=== PATIENT | male | born 1970 | race African-American/Black ===

== ENCOUNTER 2020-03-27 14:05 | Emergency (ER) | payer OTHER, SELFPAY ==
[2020-03-27 15:11] VITALS: BP 146/77; PULSE 106; RESP 16; TEMP 36.9; BMI 19.6
[2020-03-27 17:33] VITALS: BP 140/102; PULSE 94; RESP 17; TEMP 36.9; O2SAT 97
--- NOTE | 2020-03-27 17:54 | ED_ITS ---
HPI - General Adult General Chief complaint: General Medical Stated complaint: weight loss,urinary frequency Time Seen by Provider: 03/27/20 17:54 Source: patient Mode of arrival: ambulatory Limitations: no limitations History of Present Illness HPI narrative: 49-year-old male who denies significant past medical history states that his strong family history of diabetes from both sides of family both his father and mother who presents today with complaint of increased thirst and increased urination over the past 1 week or so today he checked his weight he has lost about 10 lb that made him concerned and came to emergency room. Upon arrival in the triage area his sugar was 500 otherwise he offers no other com plaints. No abdominal pain, nausea vomiting or diarrhea. Related Data Home Medications Medication Instructions Recorded Confirmed multivitamin 1 tab PO DAILY 01/05/20 03/28/20 Previous Rx's Medication Instructions Recorded bisacodyl 5 mg tablet,delayed 10 mg PO ONCE 1 Days #2 tab 03/20/20 release polyethylene glycol 3350 17 238 g PO ONCE 1 Days #238 g 03/20/20 gram/dose oral powder metformin 500 mg tablet 500 mg PO BID #60 tab 03/28/20 Allergies Allergy/AdvReac Type Severity Reaction Status Date / Time Penicillins [PENICILLINS] Allergy Severe ANAPHYLAXIS Verified 03/28/20 14:17 Review of Systems Review of Systems: Constitutional: No Weight loss, No Fever, No Chills, No Night Sweats, No Fatigue, No Malaise ENT/Mouth: No Hearing loss, No Ear Pain, No Nasal Congestion, No Sinus Pain, No Hoarseness, No sore throat, No Rhinorrhea, No Swallowing Difficulty Eyes: No Eye Pain, No Swelling, No Redness, No Foreign Body, No Discharge, No Vision Changes Cardiovascular: No Chest Pain, No SOB, No Dyspnea on Exertion, No Orthopnea, No Edema, No Palpitations Respiratory: No Cough, No Sputum, No Wheezing, No Smoke Exposure, No Dyspnea Gastrointestinal: No Nausea, No Vomiting, No Diarrhea, No Constipation, No abdominal Pain, No Hematochezia, No Melena Genitourinary: no irregular bleeding, No Dysuria, No Urinary Frequency, No Hematuria, No Urinary Incontinence, No Urgency, No Flank Pain, Musculoskeletal: No joint pain, No Myalgias, No Joint Swelling Skin: No Skin Lesions, No rash Neuro: No Weakness, No Numbness, No Paresthesias, No Loss of Consciousness, No Dizziness, No Headache Psych: No Social Issues Heme/Lymph: No Bruising, No Bleeding,No Lymphadenopathy Endocrine: No Polyuria, No Polydipsia, No Temperature Intolerance Yes all other systems are reviewed and are negative [facility] Past Medical History Medical History (Updated 03/28/20 @ 14:58 by Rusty Cronin MD) Willis palsy Diabetes mellitus Surgical History (Updated 03/28/20 @ 14:20 by NELSON Saavedra) No pertinent past surgical history Family History Family History (Updated 03/28/20 @ 14:20 by NELSON Saavedra) Father No problems noted. Mother No problems noted. Social History Social History Alcohol intake: never Smoking Status: Current every day smoker Packs Per Day: 0.5 Cigarettes Per Day: 10.0 Years Smoked: 10 Physical Exam Vital Signs: Vital Signs: Last Vital Signs Temp 98.3 F 03/27/20 18:27 Pulse 75 03/27/20 18:27 Resp 17 03/27/20 18:27 BP 137/83 03/27/20 18:27 Pulse Ox 98 03/27/20 18:27 Body Mass Index 19.6 Reviewed Const: General: cooperative and healthy appearing; No acute distress or intoxicated appearing Nutritional Appearance: average body habitus Orientation/consciousness: patient oriented x3 HENMT: Head: Yes normal to inspection Ears: hearing grossly normal bilaterally Eyes: General: appearance normal, both eyes and all related structures Visual Villasenor: normal visual villasenor by confrontation Neck: Neck: Yes normal visual inspection and No tender Thyroid: Thyroid normal Chest: Chest palpation & inspection: normal inspection of the chest Resp: Effort & Inspection: normal respiratory effort Auscultation: clear to auscultation bilaterally Cardio: Jugular venous distension: no JVD Rate: regular rate Rhythm: regular rhythm Heart sounds: S1 normal heart sound present and S2 normal heart sound present GI: Inspection: Yes normal to inspection Percussion: Yes normal to percussion Auscultation: normal bowel sounds : General: Yes no CVA tenderness Back/Spine/Pelvis: Back: no CVA tenderness Skin: General skin exam: no rashes or lesions noted Neuro: General: patient oriented x3 Extrem: General: Yes normal to inspection Medical Decision Making MDM Narrative Medical decision making narrative: POC on arrival 590 for serum POC 463 and labs show slightly elevated renal function; baseline BUN 12, baseline creatinine 1.03 today BUN 22/creatinine 1.5 for otherwise no evidence of acidosis, acetone negative. Patient subsequently administered 2 L of fluid clinically dry. Renal function improved. Glucose dropped to 279 over course of several hours. At this point case discussed with attending agreeable with starting him on metformin 500 b.i.d. and close follow-up with [place] [facility] [place]. Findings/plan reviewed with patient. Agreeable. Lab Data Result diagrams: 03/27/20 18:14 03/27/20 20:38 Labs: Lab Results 03/27/20 03/27/20 03/27/20 Range/Units 15:16 18:14 18:14 WBC 14.0 H (4.8-10.8) X10*3/uL RBC 5.12 (4.60-5.80) X10*6/uL Hgb 15.3 (14.0-18.0) g/dl Hct 41.4 L (42-52) % MCV 80.9 (80-98) fL MCH 29.9 (27.0-33.0) pg MCHC 37.0 H (31.0-36.0) g/dl RDW 13.2 (11.0-16.0) % Plt Count 305 (160-400) X10*3/uL MPV 12.1 (9.4-12.4) fL Immature Gran % (Auto) 0.4 (0.0-0.4) % Neut % (Auto) 59.9 (45-73) % Lymph % (Auto) 31.9 (20-40) % [place] % (Auto) 6.6 (2-11) % Eos % (Auto) 0.8 (0-4) % Baso % (Auto) 0.4 (0-2) % Lymph # (Auto) 4.5 (1.2-4.9) X10*3/uL [place] # (Auto) 0.9 (0.1-1.2) X10*3/uL Eos # (Auto) 0.1 (0.0-0.4) X10*3/uL Baso # (Auto) 0.1 (0.0-0.2) X10*3/uL Abs Immat Gran (auto) 0.06 H (0.00-0.03) X10*3/uL Absolute Neuts (auto) 8.4 H (2.0-8.3) X10*3/uL Absolute Nucleated RBC 0.000 (0.0-0.012) X10*3/uL Nucleated RBC % (auto) 0.0 (0.0-0.2) /100WBC Sodium 135 (135-145) mmol/L Potassium 4.7 (3.3-5.1) mmol/l Chloride 97 (96-108) mmol/L Carbon Dioxide 25 (22-29) mmol/L Anion Gap 18 (12-20) BUN 22 H (9-16) mg/dL Creatinine 1.54 H (0.5-1.4) mg/dL Estim Creat Clear Calc 52.7 Estimated GFR 48 POC Glucose 594 H* (60-115) mg/dL Random Glucose 463 H* (60-115) mg/dL Calcium 9.6 (8.4-10.2) mg/dL Total Bilirubin 0.5 (0.0-1.0) mg/dL AST 20 (5-37) U/L ALT 21 (0-40) U/L Alkaline Phosphatase 110 (39-117) U/L Total Protein 7.7 (6.5-8.0) g/dL Albumin 4.8 (3.5-5.0) g/dL TSH 0.80 (0.32-4.0) uIU/mL Urine Color Urine Appearance Urine pH (5.0-8.0) Ur Specific [place] (1.005-1.025) Urine Protein (NEG-TRACE) MG/DL Urine Glucose (UA) (NEG) MG/DL Urine Ketones (NEG) MG/DL Urine Blood (NEG) Urine Nitrite (NEG) Ur Leukocyte Esterase (NEG) Urine RBC (0) /HPF Urine WBC (0-4) /HPF Ur Squamous Epith Cells /LPF Urine Bacteria /LPF Acetone, Qual Negative (Negative) 03/27/20 03/27/20 03/27/20 Range/Units 18:14 20:38 20:43 WBC (4.8-10.8) X10*3/uL RBC (4.60-5.80) X10*6/uL Hgb (14.0-18.0) g/dl Hct (42-52) % MCV (80-98) fL MCH (27.0-33.0) pg MCHC (31.0-36.0) g/dl RDW (11.0-16.0) % Plt Count (160-400) X10*3/uL MPV (9.4-12.4) fL Immature Gran % (Auto) (0.0-0.4) % Neut % (Auto) (45-73) % Lymph % (Auto) (20-40) % [place] % (Auto) (2-11) % Eos % (Auto) (0-4) % Baso % (Auto) (0-2) % Lymph # (Auto) (1.2-4.9) X10*3/uL [place] # (Auto) (0.1-1.2) X10*3/uL Eos # (Auto) (0.0-0.4) X10*3/uL Baso # (Auto) (0.0-0.2) X10*3/uL Abs Immat Gran (auto) (0.00-0.03) X10*3/uL Absolute Neuts (auto) (2.0-8.3) X10*3/uL Absolute Nucleated RBC (0.0-0.012) X10*3/uL Nucleated RBC % (auto) (0.0-0.2) /100WBC Sodium 140 (135-145) mmol/L Potassium 4.7 (3.3-5.1) mmol/l Chloride 105 (96-108) mmol/L Carbon Dioxide 28 (22-29) mmol/L Anion Gap 12 (12-20) BUN 19 H (9-16) mg/dL Creatinine 1.19 (0.5-1.4) mg/dL Estim Creat Clear Calc 68.3 Estimated GFR > 60 POC Glucose 279 H (60-115) mg/dL Random Glucose 309 H (60-115) mg/dL Calcium 8.4 D (8.4-10.2) mg/dL Total Bilirubin (0.0-1.0) mg/dL AST (5-37) U/L ALT (0-40) U/L Alkaline Phosphatase (39-117) U/L Total Protein (6.5-8.0) g/dL Albumin (3.5-5.0) g/dL TSH (0.32-4.0) uIU/mL Urine Color YELLOW Urine Appearance CLEAR Urine pH 5.0 (5.0-8.0) Ur Specific [place] 1.020 (1.005-1.025) Urine Protein NEG (NEG-TRACE) MG/DL Urine Glucose (UA) >=1000 H (NEG) MG/DL Urine Ketones 15 (NEG) MG/DL Urine Blood NEG (NEG) Urine Nitrite NEG (NEG) Ur Leukocyte Esterase NEG (NEG) Urine RBC 0 (0) /HPF Urine WBC 0 (0-4) /HPF Ur Squamous Epith Cells TRACE /LPF Urine Bacteria NONE /LPF Acetone, Qual (Negative) Discharge Plan Discharge Clinical Impression: Diabetes mellitus, new onset Patient Disposition: Home, Self-Care Instructions: Type 2 Diabetes in Adults: New Diagnosis (ED), Diabetes and Nutrition (ED) Additional Instructions: Taking medication prescribed Follow up with her primary care doctor tomorrow to call for appointment for follow-up in next 1-2 days Return if any concerns worsening symptoms Thank you Prescriptions: No Action polyethylene glycol 3350 [Miralax] 17 gram/dose powder 238 g PO ONCE 1 Days Qty: 238 RF: 0 bisacodyl [Dulcolax (bisacodyl)] 5 mg tablet,delayed release (DR/EC) 10 mg PO ONCE 1 Days Qty: 2 RF: 0 multivitamin Tablet 1 tab PO DAILY RF: 0 metformin 500 mg tablet 500 mg PO BID Qty: 60 RF: 8 Referrals: Rusty Cronin MD [Primary Care Provider] - 1 day Interventions: ED Discharge Assessment Last Done: 03/27/20 21:37 Discharge Date/Time: 03/27/20 21:43
[2020-03-27 18:20] LABS: MANUAL DIFF FLAG NO
[2020-03-27] MEDS: 0.9 % Sodium Chloride 1,000 ML 999 ML IV ×2 (18:20→19:44)
[2020-03-27 18:22] LABS: Basophils Absolute Auto 0.1 X10*3/uL (0.0-0.2); Basophils Percent Auto 0.4 % (0-2); Eosinophils Absolute Auto 0.1 X10*3/uL (0.0-0.4); Eosinophils Percent Auto 0.8 % (0-4); Hematocrit 41.4 % (42-52); Hemoglobin 15.3 g/dl (14.0-18.0); Imm Gran Abs Auto 0.06 X10*3/uL (0.00-0.03); Imm Gran Pct Auto 0.4 % (0.0-0.4); Lymphocytes Absolute Auto 4.5 X10*3/uL (1.2-4.9); Lymphocytes Percent Auto 31.9 % (20-40); Mean Corpuscular Hemoglobin 29.9 pg (27.0-33.0); Mean Corpuscular Volume 80.9 fL (80-98); Mean Platelet Volume 12.1 fL (9.4-12.4); Monocytes Absolute Auto 0.9 X10*3/uL (0.1-1.2); Monocytes Percent Auto 6.6 % (2-11); Neutrophils Absolute Auto 8.4 X10*3/uL (2.0-8.3); Neutrophils Percent Auto 59.9 % (45-73); Platelet Count 305 X10*3/uL (160-400); Red Blood Count 5.12 X10*6/uL (4.60-5.80); Red Cell Distribution Width 13.2 % (11.0-16.0)
[2020-03-27 18:27] VITALS: BP 137/83; PULSE 75; RESP 17; TEMP 36.8; O2SAT 98
[2020-03-27 18:32] LABS: Appearance Urine CLEAR; Color Urine YELLOW; Glucose Urine UA >=1000 MG/DL (NEG); Leukocyte Esterase Urine NEG (NEG); Nitrite Urine NEG (NEG); Urine Blood NEG (NEG); Urine Ketones 15 MG/DL (NEG); Urine Protein NEG (NEG-TRACE)
[2020-03-27 18:39] LABS: Acetone, serum QL Negative (Negative)
[2020-03-27 18:55] LABS: Alanine Aminotransferase 21 U/L (0-40); Albumin Level 4.8 g/dL (3.5-5.0); Alkaline Phosphatase 110 U/L (39-117); Anion Gap 18 (12-20); Aspartate Amino Transferase 20 U/L (5-37); Bilirubin Total 0.5 mg/dL (0.0-1.0); Blood Urea Nitrogen 22 mg/dL (9-16); Calcium 9.6 mg/dL (8.4-10.2); Carbon Dioxide 25 mmol/L (22-29); Chloride 97 mmol/L (96-108); Creatinine Clr Calc Pharmacy 52.7; Estimated Glomerular Filt Rate 48; Glucose Random 463 mg/dL (60-115); Potassium 4.7 mmol/l (3.3-5.1); Sodium 135 mmol/L (135-145); Total Protein 7.7 g/dL (6.5-8.0)
[2020-03-27 19:04] LABS: RBC Urine 0 /HPF (0); Squamous Epithelial Cell Urine TRACE /LPF; WBC Urine 0 /HPF (0-4)
[2020-03-27 20:49] LABS: Glucose, Whole Blood 279 mg/dL (60-115)
[2020-03-27 21:10] LABS: Anion Gap 12 (12-20); Blood Urea Nitrogen 19 mg/dL (9-16); Calcium 8.4 mg/dL (8.4-10.2); Carbon Dioxide 28 mmol/L (22-29); Chloride 105 mmol/L (96-108); Creatinine Clr Calc Pharmacy 68.3; Estimated Glomerular Filt Rate > 60; Glucose Random 309 mg/dL (60-115); Potassium 4.7 mmol/l (3.3-5.1); Sodium 140 mmol/L (135-145)
[2020-03-27] MEDS: metFORMIN HCl 500 MG TABLET PO (21:40)
[2020-03-28 07:50] LABS: Glucose, Whole Blood 594 mg/dL (60-115)
== END 2020-03-27 21:43 | disposition home or self-care (01) ==
PROVIDERS: Nurse Practitioner Primary Care; Emergency Provider Emergency Medicine; PCP Internal Medicine
DX: E11.9 Type 2 diabetes mellitus without complications (principal); Z71.3 Dietary counseling and surveillance
CPT/HCPCS: 36415; 80048; 80053; 81001; 82009; 82947; 84443; 85025; 96360; 96361; 99284

== ENCOUNTER → 2020-05-07 07:44 | Outpatient (BNVA) | payer OTHER, SELFPAY | PROVIDERS: PCP Internal Medicine; Visit Provider Nurse Practitioner Gerontology | DX: E11.9 Type 2 diabetes mellitus without complications (principal) | CPT/HCPCS: 82947 ==

== ENCOUNTER → 2020-05-28 14:11 | Outpatient (BNVA) | payer OTHER, SELFPAY | PROVIDERS: PCP Internal Medicine; Visit Provider Physician Assistant | DX: Z12.11 Encounter for screening for malignant neoplasm of colon (principal) | CPT/HCPCS: 99212 ==

== ENCOUNTER 2021-11-03 09:01 | Outpatient (REF) | payer OTHER, SELFPAY ==
[2021-11-03 09:35] LABS: MANUAL DIFF FLAG NO
[2021-11-03 10:18] LABS: Basophils Absolute Auto 0.1 X10*3/uL (0.0-0.2); Basophils Percent Auto 0.4 % (0-2); Eosinophils Absolute Auto 0.2 X10*3/uL (0.0-0.4); Eosinophils Percent Auto 1.9 % (0-4); Hematocrit 40.1 % (42.0-52.0); Hemoglobin 14.3 g/dl (14.0-18.0); Imm Gran Abs Auto 0.04 X10*3/uL (0.00-0.03); Imm Gran Pct Auto 0.3 % (0.0-0.4); Lymphocytes Absolute Auto 2.9 X10*3/uL (1.2-4.9); Lymphocytes Percent Auto 23.9 % (20-40); Mean Corpuscular HGB Conc 35.7 g/dl (31.0-36.0); Mean Corpuscular Hemoglobin 29.9 pg (27.0-33.0); Mean Corpuscular Volume 83.9 fL (80.0-98.0); Mean Platelet Volume 10.4 fL (9.4-12.4); Monocytes Absolute Auto 0.9 X10*3/uL (0.1-1.2); Monocytes Percent Auto 7.4 % (2-11); Neutrophils Absolute Auto 8.1 x10*3/uL (2.0-8.3); Neutrophils Percent Auto 66.1 % (45-73); Platelet Count 333 X10*3/uL (160-400); Red Blood Count 4.78 X10*6/uL (4.60-5.80); Red Cell Distribution Width 14.2 % (11.0-16.0); White Blood Count 12.2 X10*3/uL (4.8-10.8)
[2021-11-03 10:56] LABS: Alanine Aminotransferase 13 U/L (0-40); Albumin Level 4.4 g/dL (3.5-5.0); Alkaline Phosphatase 89 U/L (39-117); Anion Gap 12 (12-20); Aspartate Amino Transferase 15 U/L (5-37); Bilirubin Total 0.6 mg/dL (0.0-1.0); Blood Urea Nitrogen 17 mg/dL (9-16); Calcium 9.3 mg/dL (8.4-10.2); Carbon Dioxide 23 mmol/L (22-29); Chloride 110 mmol/L (96-108); Cholesterol 210 mg/dL; Estimated Glomerular Filt Rate > 60; Glucose Fasting 114 mg/dL (60-99); HDL Cholesterol 44 mg/dL; LDL Cholesterol Calculated 156 mg/dl; Potassium 4.2 mmol/L (3.3-5.1); Sodium 141 mmol/L (135-145); Triglycerides 51 mg/dL
[2021-11-03 11:10] LABS: Estimated Average Glucose 120 mg/dL; Hemoglobin A1c % 5.8 %
[2021-11-03 11:17] LABS: Thyroid Stimulating Hormone 0.62 uIU/mL (0.32-4.0)
== END 2021-11-03 09:02 | disposition home or self-care (01) ==
LOC: HO.LAB 09:01
PROVIDERS: PCP Internal Medicine; Visit Provider Internal Medicine
DX: Z13.0 Encounter for screening for diseases of the blood and blood-forming organs and certain disorders involving the immune mechanism (principal); E78.5 Hyperlipidemia, unspecified; E11.9 Type 2 diabetes mellitus without complications; E03.9 Hypothyroidism, unspecified; I10 Essential (primary) hypertension
CPT/HCPCS: 36415; 80053; 80061; 83036; 84443; 85025

== ENCOUNTER 2023-03-01 10:58 | Outpatient (AMB) | payer OTHER, SELFPAY ==
[2023-03-01 11:06] VITALS: BP 148/92; PULSE 95; O2SAT 98; BMI 20.1
--- NOTE | 2023-03-01 11:06 | MHC.PC.OV ---
Vital Signs 03/01/23 11:06 Height 6 ft Weight 148 lb BMI 20.1 BP 148/92 H Blood Pressure Location Lt brachial Position Sitting Pulse 95 Pulse Source Pulse Oximeter Pulse Oximetry (%) 98 Oxygen Delivery Method Room Air Intake Visit Reasons: DM Herbicide Service Sales Representative Required: No Riprap Placing Supervisor: Not Required per policy Accompanied by: Self / Same As Patient Allergies Penicillins [PENICILLINS] Allergy (Severe, Verified 03/01/23 11:06) ANAPHYLAXIS Medication List - Last Reconciled 03/01/23 by Rusty Cronin MD blood sugar diagnostic (FreeStyle Lite Strips) As directed three times a day blood-glucose meter (FreeStyle Lite Meter kit) As directed three a day lancets (FreeStyle Lancets) As directed three time a day metformin 500 mg PO BID multivitamin 1 tab PO DAILY Tobacco use date assessed: 03/01/23 Dental Screening Dental Screen Date: 03/01/23 Did you have a dental visit in the last 12 months?: No Did you have a dental problem in the last 6 months where you did not have access to dental care?: No Was dental information given to patient?: Patient has dentist HPI DM HPI Details DM on rx and needs refill; compliant; due for labs [facility] Medical History Diabetes mellitus type 2, controlled, without complications Diabetes mellitus Willis palsy Surgical History Hx of eye surgery No pertinent past surgical history Family History Father No problems noted. Mother Diabetes Hypertension Hyperlipidemia Social History Household Members: Family Housing: House Alcohol intake: current Alcohol intake frequency: does not drink Patient Tobacco Use Status: Current everyday Tobacco user Cigarette Packs Per Day: 0.5 Cigarettes Per Day: 10.0 Years Smoked: 10 e-Cigarette/Vaping Use: Never Used Second Hand Smoke Exposure: Yes service: No Current occupational status: employed Cognitive needs: No Hearing needs: No Vision needs: Yes Questionnaire PHQ-9 Over the last 2 weeks, how often have you been bothered by any of the following problems? 1. Little interest or pleasure in doing things: not at all 2. Feeling down, depressed, or hopeless: not at all 3. Trouble falling or staying asleep, or sleeping too much: not at all 4. Feeling tired or having little energy: not at all 5. Poor appetite or overeating: not at all 6. Feeling bad about yourself - or that you are a failure or have let yourself or your family down: not at all 7. Trouble concentrating on things, such as reading the newspaper or watching television: not at all 8. Moving or speaking so slowly that other people could have noticed. Or the opposite - being so fidgety or restless that you have been moving around a lot more than usual: not at all 9. Thoughts that you would be better off or of hurting yourself in some way: not at all Total score: 0 Depression Screening Interpretation: Negative Depression Screening Done: Yes Source: Developed by Drs. Trev Navarrete, Ana Ovalle, Feliz Arellano and colleagues, with an educational molly from [employer]. Thrive Questionnaire Date Thrive assessed: 03/01/23 I am a: Patient What is your living situation today?: I have a steady place to live Within the past 12 months, did the food you bought not last and you didn't have the money to get more?: Never true Within the past 12 months, did you worry whether your food would run out before you got money to buy more?: Never true Do you have trouble paying for medicines?: No Do you have trouble getting transportation to medical appointments?: No Do you have trouble paying your heating and electricity bill?: No Do you have trouble taking care of your child, family member or friend?: No Do you have trouble with day-to-day activities such as bathing, preparing meals, shopping, managing finances, etc.?: No Are you currently unemployed and looking for a job?: No Are you interested in more education?: No Please select the resources that you would like help with: None AUDIT C Alcohol Use Questionnaire (AUDIT-C) 1. How often do you have a drink containing alcohol?: Never 3. How often do you have six or more drinks on one occasion?: Never Total Score: 0 Score Reviewed/Action Taken: Yes KATYA-7 AMB Questionnaire KATYA-7 Date KATYA - 7 assessed: 03/01/23 Feeling nervous, anxious, or on edge: 0 = Not at all Not being able to stop or control worryin = Not at all Worrying too much about different things: 0 = Not at all Trouble relaxin = Not at all Being so restless that it is hard to sit still: 0 = Not at all Becoming easily annoyed or irritable: 0 = Not at all Feeling afraid as if something awful might happen: 0 = Not at all Total KATYA-7 score (0-4 normal; 5-9 mild; 10-14 moderate; 15-21 severe): 0 Source: Developed by Drs. Trev Navarrete, Ana Ovalle, Feliz Arellano and colleagues, with an educational molly from [employer]. Review of Systems Const Denies chills, Denies headache(s) and Denies weight loss ENT Denies headache(s) Card Denies chest pain, Denies syncope, Denies irregular heart rhythm and Denies dyspnea Resp Denies chest congestion, Denies cough and Denies dyspnea GI Denies abdominal pain, Denies change in stool character, Denies nausea and Denies vomiting Musc Denies deformity and Denies joint swelling Neuro Denies syncope and Denies headache(s) Physical exam (Primary Care) Vital Signs: Last Vital Signs Pulse 95 03/01/23 11:06 BP 148/92 H 03/01/23 11:06 Pulse Ox 98 03/01/23 11:06 Oxygen Delivery Method Room Air 03/01/23 11:06 BMI result Body Mass Index 20.1 Tobacco/Smoking Status: Tobacco use Status Tobacco use date assessed 03/01/23 03/01/23 11:07 Patient Tobacco Use Status Current everyday Tobacco 03/01/23 11:07 e-Cigarette/Vaping Use Never Used 03/01/23 11:07 PHQ-9: PHQ-9 Score PHQ-9: Total score 0 03/01/23 11:07 Depression Screening Interpretation: Negative Thrive Assessment: Date of Thrive Assessment Date Thrive assessed 03/01/23 03/01/23 11:07 Const General: cooperative, comfortable, no acute distress and alert Neck Neck: Yes no lymphadenopathy Thyroid: Thyroid normal Resp Effort & Inspection: normal respiratory effort Auscultation: clear to auscultation bilaterally Percussion: percussion normal Cardio Jugular venous distension: no JVD Palpation: normal PMI Rate: regular rate Rhythm: regular rhythm Heart sounds: S1 normal heart sound present and S2 normal heart sound present GI Inspection: Yes normal to inspection Palpation (GI): No hepatosplenomegaly present Skin General skin exam: no rashes or lesions noted Extrem General: Yes no clubbing, cyanosis or edema Assessment and Plan Assessment & Plan (1) Diabetes mellitus type 2, controlled, without complications: Code(s): E11.9 - Type 2 diabetes mellitus without complications Plan: labs Orders: Orders Lipid Panel Today E78.5 - Hyperlipidemia, unspecified Microalbumin, Random (w Creat) Today E11.69 - Type 2 diabetes mellitus with other specified complication, E66.01 - Morbid (severe) obesity due to excess calories Hemoglobin A1c Today R73.9 - Hyperglycemia, unspecified Comprehensive [place]. Panel Fast Today N28.9 - Disorder of kidney and ureter, unspecified Complete Blood Count Auto Diff Today D64.9 - Anemia, unspecified Medications: Refilled metformin 500 mg PO BID 60 tabs 8RF Coding Level of Care Code Est Pt Level 3 (05764) Diagnoses Diabetes mellitus type 2, controlled, without complications E11.9 Additional Codes PHQ-9 - 35904 - PHQ-9 Billing: ([id number])
== END 2023-03-01 11:56 | disposition home or self-care (01) ==
PROVIDERS: PCP Internal Medicine; Visit Provider Internal Medicine
DX: E11.9 Type 2 diabetes mellitus without complications (principal)
CPT/HCPCS: 99213

== ENCOUNTER 2023-03-10 08:05 | Outpatient (REF) | payer OTHER, SELFPAY ==
[2023-03-10 08:26] LABS: MANUAL DIFF FLAG NO
[2023-03-10 08:47] LABS: Basophils Absolute Auto 0.1 X10*3/uL (0.0-0.2); Basophils Percent Auto 0.5 % (0-2); Eosinophils Absolute Auto 0.2 X10*3/uL (0.0-0.4); Eosinophils Percent Auto 1.8 % (0-4); Hematocrit 40.5 % (42.0-52.0); Hemoglobin 14.8 g/dl (14.0-18.0); Imm Gran Abs Auto 0.05 X10*3/uL (0.00-0.03); Imm Gran Pct Auto 0.4 % (0.0-0.4); Lymphocytes Absolute Auto 4.1 X10*3/uL (1.2-4.9); Lymphocytes Percent Auto 31.8 % (20-40); Mean Corpuscular HGB Conc 36.5 g/dl (31.0-36.0); Mean Corpuscular Hemoglobin 30.3 pg (27.0-33.0); Mean Platelet Volume 9.9 fL (9.4-12.4); Monocytes Absolute Auto 1.2 X10*3/uL (0.1-1.2); Monocytes Percent Auto 9.7 % (2-11); Neutrophils Absolute Auto 7.1 x10*3/uL (2.0-8.3); Neutrophils Percent Auto 55.8 % (45-73); Platelet Count 368 X10*3/uL (160-400); Red Blood Count 4.88 X10*6/uL (4.60-5.80); White Blood Count 12.7 X10*3/uL (4.8-10.8)
[2023-03-10 09:21] LABS: Microalbum/Creatinine Ratio Ur 4.9 ug/mg cr (<30)
[2023-03-10 09:22] LABS: Alanine Aminotransferase 22 U/L (0-40); Albumin Level 4.4 g/dL (3.5-5.0); Alkaline Phosphatase 93 U/L (39-117); Anion Gap 12 (12-20); Aspartate Amino Transferase 23 U/L (5-37); Bilirubin Total 0.8 mg/dL (0.0-1.0); Blood Urea Nitrogen 19 mg/dL (9-16); Calcium 9.5 mg/dL (8.4-10.2); Carbon Dioxide 27 mmol/L (22-29); Chloride 106 mmol/L (96-108); Cholesterol 216 mg/dL (<200); Estimated Glomerular Filt Rate > 60; Glucose Fasting 154 mg/dL (60-99); HDL Cholesterol 42 mg/dL (>40); LDL Cholesterol Calculated 158 mg/dL (<100); Potassium 3.9 mmol/L (3.3-5.1); Sodium 141 mmol/L (135-145); Total Protein 7.3 g/dL (6.5-8.0); Triglycerides 80 mg/dL (<150)
[2023-03-10 09:31] LABS: Estimated Average Glucose 131 mg/dL; Hemoglobin A1c % 6.2 % (<6.0)
== END 2023-03-10 08:06 | disposition home or self-care (01) ==
LOC: HO.LAB 08:05
PROVIDERS: PCP Internal Medicine; Visit Provider Internal Medicine
DX: D64.9 Anemia, unspecified (principal); E78.5 Hyperlipidemia, unspecified; E66.01 Morbid (severe) obesity due to excess calories; N28.9 Disorder of kidney and ureter, unspecified; E11.65 Type 2 diabetes mellitus with hyperglycemia
CPT/HCPCS: 36415; 80053; 80061; 82043; 82570; 83036; 85025

== ENCOUNTER 2024-02-24 13:38 | Outpatient (AMB) | payer OTHER, SELFPAY ==
--- NOTE | 2024-02-24 13:39 | MHC.PC.OV ---
Vital Signs 02/24/24 13:42 Height 6 ft Weight 144 lb BMI 19.5 BP 146/94 H Blood Pressure Location Lt brachial Position Sitting Pulse 117 H Pulse Source Pulse Oximeter Pulse Oximetry (%) 95 Oxygen Delivery Method Room Air Intake Visit Reasons: OVERDUE ANNUAL PE- NEEDS A1C Education And Development Manager Required: No Accompanied by: Self / Same As Patient Allergies Penicillins [PENICILLINS] Allergy (Severe, Verified 02/24/24 13:47) ANAPHYLAXIS Medication List - Last Reconciled 02/25/24 by Rusty Cronin MD blood sugar diagnostic (FreeStyle Lite Strips) As directed three times a day blood-glucose meter (FreeStyle Lite Meter kit) As directed three a day lancets (FreeStyle Lancets) As directed three time a day metformin 500 mg PO BID multivitamin 1 tab PO DAILY Tobacco use date assessed: 02/24/24 Dental Screening Dental Screen Date: 02/24/24 Did you have a dental visit in the last 12 months?: No Did you have a dental problem in the last 6 months where you did not have access to dental care?: No Was dental information given to patient?: Yes HPI OVERDUE ANNUAL PE- NEEDS A1C HPI Details DM on rx; compliant; stable; due for labs PFSH Medical History Diabetes mellitus type 2, controlled, without complications Diabetes mellitus Willis palsy Surgical History Hx of eye surgery No pertinent past surgical history Family History Father No problems noted. Mother Diabetes Hypertension Hyperlipidemia Social History Household Members: Family Housing: House Alcohol intake: current Alcohol intake frequency: does not drink Patient Tobacco Use Status: Current everyday Tobacco user Tobacco use type: Cigarette Cigarette Packs Per Day: 0.5 Cigarettes Per Day: 10.0 Years Smoked: 10 Packs Per Year: 5 Packs per year/per ci.00 e-Cigarette/Vaping Use: Never Used Second Hand Smoke Exposure: Yes service: No Current occupational status: employed Cognitive needs: No Hearing needs: No Vision needs: Yes Questionnaire PHQ-9 Over the last 2 weeks, how often have you been bothered by any of the following problems? 1. Little interest or pleasure in doing things: not at all 2. Feeling down, depressed, or hopeless: not at all 3. Trouble falling or staying asleep, or sleeping too much: not at all 4. Feeling tired or having little energy: not at all 5. Poor appetite or overeating: not at all 6. Feeling bad about yourself - or that you are a failure or have let yourself or your family down: not at all 7. Trouble concentrating on things, such as reading the newspaper or watching television: not at all 8. Moving or speaking so slowly that other people could have noticed. Or the opposite - being so fidgety or restless that you have been moving around a lot more than usual: not at all 9. Thoughts that you would be better off or of hurting yourself in some way: not at all Total score: 0 Depression Screening Interpretation: Negative Depression Screening Done: Yes 91875 - PHQ-9 Billing: Yes Source: Developed by Drs. Trev Navarrete, Ana Ovalle, Feliz Arellano and colleagues, with an educational molly from [employer]. Thrive Questionnaire Date Thrive assessed: 02/24/24 I am a: Patient What is your living situation today?: I have a steady place to live Within the past 12 months, did the food you bought not last and you didn't have the money to get more?: Never true Within the past 12 months, did you worry whether your food would run out before you got money to buy more?: Never true Do you have trouble paying for medicines?: No Do you have trouble getting transportation to medical appointments?: No Do you have trouble paying your heating and electricity bill?: No Do you have trouble taking care of your child, family member or friend?: No Do you have trouble with day-to-day activities such as bathing, preparing meals, shopping, managing finances, etc.?: No Are you currently unemployed and looking for a job?: No Are you interested in more education?: No Please select the resources that you would like help with: None THRIVE Score: 0 AUDIT C Alcohol Use Questionnaire (AUDIT-C) 1. How often do you have a drink containing alcohol?: Never 2. How many drinks containing alcohol do you have on a typical day when you are drinking?: 1 or 2 3. How often do you have six or more drinks on one occasion?: Never Total Score: 0 KATYA-7 AMB Questionnaire KATYA-7 Date KATYA - 7 assessed: 02/24/24 Feeling nervous, anxious, or on edge: 0 = Not at all Not being able to stop or control worryin = Not at all Worrying too much about different things: 0 = Not at all Trouble relaxin = Not at all Being so restless that it is hard to sit still: 0 = Not at all Becoming easily annoyed or irritable: 0 = Not at all Feeling afraid as if something awful might happen: 0 = Not at all Total KATYA-7 score (0-4 normal; 5-9 mild; 10-14 moderate; 15-21 severe): 0 Source: Developed by Drs. Trev Navarrete, Ana Ovalle, Feliz Arellano and colleagues, with an educational molly from [employer]. KATYA-7 Assessment Billing KATYA-7 Assessment Tool: KATYA-7 Assessment 80269 Review of Systems Const Denies chills, Denies fatigue, Denies headache(s) and Denies weight loss Eyes Denies change in vision, Denies diplopia and Denies eye pain ENT Denies vertigo, Denies dizziness, Denies headache(s) and Denies nasal discharge Card Denies chest pain, Denies rapid heart rate and Denies dyspnea on exertion Resp Denies chest congestion, Denies cough, Denies pain with cough and Denies dyspnea on exertion GI Denies abdominal pain, Denies hematochezia and Denies change in bowel habits Musc Denies myalgias, Denies arthralgias and Denies joint swelling Skin/Breast Denies lesions and Denies unusual bruising Neuro Denies vertigo, Denies dizziness, Denies headache(s) and Denies focal weakness Endo Denies fatigue Physical exam (Primary Care) Vital Signs: Last Vital Signs Pulse 117 H 02/24/24 13:42 BP 146/94 H 02/24/24 13:42 Pulse Ox 95 02/24/24 13:42 Oxygen Delivery Method Room Air 02/24/24 13:42 BMI result Body Mass Index 19.5 Tobacco/Smoking Status: Tobacco use Status Tobacco use date assessed 02/24/24 02/24/24 13:50 Patient Tobacco Use Status Current everyday Tobacco 02/24/24 13:39 Tobacco use type Cigarette 02/24/24 13:50 e-Cigarette/Vaping Use Never Used 02/24/24 13:39 PHQ-9: PHQ-9 Score PHQ-9: Total score 0 02/24/24 13:51 Depression Screening Interpretation: Negative Thrive Assessment: Date of Thrive Assessment Date Thrive assessed 02/24/24 02/24/24 13:50 Const General: cooperative, healthy appearing and no acute distress Orientation/consciousness: oriented to person, oriented to place and oriented to time HENMT Head: Yes normal to inspection, Yes normocephalic and Yes atraumatic Mouth: Normal oral and palatal mucosa present and tongue normal Throat: Yes posterior oropharynx normal and Yes uvula midline Eyes General: appearance normal, both eyes and all related structures Neck Neck: Yes normal visual inspection, Yes full ROM and Yes no lymphadenopathy Thyroid: Thyroid normal Carotids: normal carotid upstroke Chest Chest palpation & inspection: normal inspection of the chest Resp Effort & Inspection: normal respiratory effort and able to speak in complete sentences Auscultation: clear to auscultation bilaterally Cardio Jugular venous distension: no JVD Palpation: normal PMI Rate: regular rate Rhythm: regular rhythm Heart sounds: S1 normal heart sound present and S2 normal heart sound present GI Inspection: Yes normal to inspection Palpation (GI): Soft to palpation and No hepatosplenomegaly present Auscultation: normal bowel sounds General: Yes no CVA tenderness Back/Spine/Pelvis Back: no CVA tenderness Skin General skin exam: no rashes or lesions noted Neuro General: oriented to person, oriented to place and oriented to time Extrem General: Yes normal to inspection and Yes full ROM Results AMB Hemoglobin A1c AMB Hemoglobin A1c 7.0 % Last Edit by Meg Beard CMA on 02/24/24 13:52 Results Reviewed Results Reviewed: Laboratory Last Values Hgb A1c (Clinic) 7.0 % (4.0-6.0) H 02/24/24 13:46 Coding Level of Care Code Est Pt Prev Care 40-64y(77709) Diagnoses Physical exam Z00.00 Diabetes mellitus type 2, controlled, without complications E11.9 Additional Codes KATYA-7 Assessment Billing - KATYA-7 Assessment Tool: KATYA-7 Assessment 09313 ([id number]) PHQ-9 - 45319 - PHQ-9 Billing: Yes ([id number]) Assessment & Plan Assessment & Plan (1) Physical exam: Code(s): Z00.00 - Encounter for general adult medical examination without abnormal findings Category: Medical Plan: stable (2) Diabetes mellitus type 2, controlled, without complications: Code(s): E11.9 - Type 2 diabetes mellitus without complications Category: Medical Plan: stable; same rx; do labs Orders: Orders Lipid Panel 02/24/24 Z13.220 - Encounter for screening for lipoid disorders AMB Hemoglobin A1c 02/24/24 E11.9 - Type 2 diabetes mellitus without complications Complete Blood Count Auto Diff 02/24/24 Z13.0 - Encounter for screening for diseases of the blood and blood-forming organs and certain disorders involving the immune mechanism Comprehensive [place]. Panel Fast 02/24/24 Z13.9 - Encounter for screening, unspecified Microalbumin, Random (w Creat) 02/24/24 E11.69 - Type 2 diabetes mellitus with other specified complication, E66.01 - Morbid (severe) obesity due to excess calories Referrals Ophthalmology Referral E11.9 - Type 2 diabetes mellitus without complications, Z01.00 - Encounter for examination of eyes and vision without abnormal findings
[2024-02-24 13:42] VITALS: BP 146/94; PULSE 117; O2SAT 95; BMI 19.5
== END 2024-02-24 15:28 | disposition home or self-care (01) ==
PROVIDERS: PCP Internal Medicine; Visit Provider Internal Medicine
DX: Z00.00 Encounter for general adult medical examination without abnormal findings (principal); E11.9 Type 2 diabetes mellitus without complications

== ENCOUNTER → 2024-02-24 13:38 | Outpatient (BNVA) | payer OTHER, SELFPAY | PROVIDERS: PCP Internal Medicine; Visit Provider Internal Medicine | DX: Z00.00 Encounter for general adult medical examination without abnormal findings (principal); E11.9 Type 2 diabetes mellitus without complications | CPT/HCPCS: 83036; 96127; 99396 ==

== ENCOUNTER 2024-08-06 16:37 | Inpatient (IN) | payer OTHER, SELFPAY ==
--- NOTE | ~2024-08-06 | MR_ITS ---
EXAMINATION: MR BRAIN WITHOUT CONTRAST CLINICAL INFORMATION: Left lower extremity weakness. COMPARISON: No prior available. Correlation made with CT angiography head and neck 08/06/2024. TECHNIQUE: MRI of the brain was obtained using routine sequences without contrast. Examination performed on a 1.5 Leonor Siemens high-field magnet. FINDINGS: Area of acute infarction/diffusion restriction right mid to posterior hull radiata measuring 2.0 x 1.1 x 1.8 cm (AP, TRV, CC). This begins in the posterior right putamen and extends cephalad to the posterior internal capsule/mid to posterior hull radiata. There is no associated gross mass effect associated with this infarct. There is no intracranial hemorrhage, additional acute infarction, mass effect, or edema. Ventricles, sulci, and cisterns are normal in size and configuration for patient age. No shift of midline. No abnormal hemosiderin deposition is identified. There is an old lacunar type infarct in the anterior left hull radiata. There is an old lacunar type infarct right medial cerebellum. There are scattered punctate and minimally confluent foci of white matter T2 hyperintensity in the periventricular, subcortical, and hemispheric deep white matter, nonspecific. These statistically most likely relate to small vessel ischemic changes. Midline structures appear normally formed. The pituitary gland appears normal. Posterior fossa structures appear normal. Cerebellar tonsils are appropriately located. Major flow voids are preserved within the skull base. The globes and orbital contents demonstrate no abnormalities. Paranasal sinuses are clear bilaterally. The mastoids and tympanic cavities are normally aerated. Extracranial soft tissues demonstrate no abnormalities. No suspicious bone marrow changes are evident. Atlantoaxial joint is normal. MR/MR head/brain wo con IMPRESSION: 1. Acute/subacute infarct in the right mid to posterior hull radiata measuring 2.0 x 1.1 x 1.8 cm (MCA perforators/lenticulostriate artery distribution). No associated mass effect. 2. No additional acute infarct, evidence of intracranial hemorrhage, mass effect, or edema. 3. Old infarct in the left anterior hull radiata. Old lacunar type infarct in the right medial cerebellum. Consider chronic hypertension. 4. Mild to moderate changes of small vessel ischemia. Electronically signed by: Harris tMz MD 08/07/2024 01:01 PM EDT
--- NOTE | ~2024-08-06 | CT_ITS ---
CLINICAL HISTORY: Left arm and leg weakness x3 days CT angiography head and neck with contrast. 3D Postprocessing. Comparison: None Findings: Aortic arch and cervical great vessels are patent. Minimal calcified plaque at right carotid bifurcation. No stenosis. Bilateral internal and external carotid arteries are patent. Bilateral vertebral arteries are patent. Intracranial arteries are patent. No intracranial large vessel occlusion. No aneurysm. Overall symmetric branching pattern. No abnormal intracranial enhancement. The visualized thyroid gland is unremarkable. No cervical mass or fluid collection. Lung apices clear. No acute fracture. IMPRESSION: Patent head and neck CTA. This document has been electronically signed by: Karen Nicole MD on 08/06/2024 20:25:07
--- NOTE | ~2024-08-06 | XR_ITS ---
CLINICAL HISTORY: Left arm and leg weakness x3 days 2 view chest x-ray Comparison: None Findings: Normal size heart. No consolidation, pleural effusion or pneumothorax. No acute fracture. IMPRESSION: 1. No acute findings. This document has been electronically signed by: Karen Nicole MD on 08/06/2024 18:09:45
[2024-08-06 16:41] VITALS: BP 209/120; PULSE 114; RESP 17; TEMP 36.6; O2SAT 98; BMI 19.2
--- NOTE | 2024-08-06 16:46 | ECG_ITS ---
Test Reason : HTN Blood Pressure : */* mmHG Vent. Rate : 95 BPM Atrial Rate : 95 BPM P-R Int : 156 ms QRS Dur : 78 ms QT Int : 342 ms P-R-T Axes : 63 73 180 degrees QTcB Int : 429 ms Normal sinus rhythm Minimal voltage criteria for LVH, may be normal variant ( Sokolow-Ball ) T wave abnormality, consider anterolateral ischemia Abnormal ECG No previous ECGs available Referred By: Agustin Qureshi Electronically Signed By: Camilo Shipley
--- NOTE | 2024-08-06 16:48 | ED.GENADULT ---
HPI - General Adult General Chief complaint: General Medical Stated complaint: Left Leg pain Time Seen by Provider: 08/06/24 17:17 History of Present Illness ED Provider: Dr. Little HPI narrative: 54 y/o M patient; PMH T2DM; presents from home reporting 3 days (starting Wednesday08/04/2024) left arm and leg weakness. He states on Wednesday he was at work when around 11am he noticed his left leg felt heavy. He noticed he was limping and almost having to drag his left leg with him. He also noticed some decreased dexterity in his left arm during this time. He continued working. The patient otherwise denies: fever or chills, chest pain, SOB, cough/congestion, abdominal pain, nausea/vomiting, visual abnormalities. He denies any leg or back pain. Related Data Home Medications ?Medication ?Instructions ?Recorded ?Confirmed multivitamin 1 tab PO DAILY 01/05/20 08/06/24 Previous Rx's ?Medication ?Instructions ?Recorded blood sugar diagnostic (FreeStyle #100 ea 05/07/20 Lite Strips) blood-glucose meter (FreeStyle #1 ea 05/07/20 Lite Meter kit) lancets 28 gauge (FreeStyle #100 ea 05/07/20 Lancets) metformin 500 mg tablet 500 mg PO BID #60 tabs 10/13/23 Allergies Allergy/AdvReac Type Severity Reaction Status Date / Time Penicillins [PENICILLINS] Allergy Severe ANAPHYLAXIS Verified 08/06/24 16:43 Review of Systems Review of Systems: Yes all other systems are reviewed and are negative Neurologic: Denies Sensory deficit (Neuro) [facility] Past Medical History Attestation statement: The following information was validated with the patient. Source: old records reviewed Medical History Diabetes mellitus type 2, controlled, without complications Diabetes mellitus Willis palsy Surgical History Hx of eye surgery No pertinent past surgical history Family History Family History Father No problems noted. Mother Diabetes Hypertension Hyperlipidemia Social History Social History Household Members: Family Housing: Apartment Do you presently have visiting nurse or other home services: No Alcohol intake: current Alcohol intake frequency: does not drink Patient Tobacco Use Status: Current everyday Tobacco user Tobacco use type: Cigarette Cigarette Packs Per Day: 0.5 Cigarettes Per Day: 10 Years Smoked: 10 e-Cigarette/Vaping Use: Never Used Second Hand Smoke Exposure: Yes service: No Current occupational status: employed Cognitive needs: No Hearing needs: No Vision needs: Yes Physical Exam ED Vital Signs: Vital Signs - 24 hr 08/06/24 16:41 08/06/24 18:00 08/06/24 20:00 Temperature 98 F 98.2 F Pulse Rate 114 H 93 Respiratory Rate 17 16 Blood Pressure 209/120 H 192/95 H 187/115 H Pulse Oximetry 98 97 Oxygen Delivery Method Room Air Room Air 08/06/24 21:08 Temperature 98.6 F Pulse Rate 72 Respiratory Rate 16 Blood Pressure 185/102 H Pulse Oximetry 97 Oxygen Delivery Method Room Air BMI result Body Mass Index 19.2 Patient is afebrile, tachycardic, and hypertensive. Const General: cooperative Orientation/consciousness: patient oriented x3 HENMT Head: Yes normal to inspection and Yes atraumatic Eyes General: appearance normal, both eyes and all related structures Pupils: Equal, round and reactive pupils present EOM: EOMs intact bilaterally Neck Neck: Yes normal visual inspection, Yes full ROM, Yes supple and No tender Chest Chest palpation & inspection: normal inspection of the chest and normal palpation of entire chest wall Resp Effort & Inspection: normal respiratory effort, able to speak in complete sentences, no cough and no respiratory distress Auscultation: clear to auscultation bilaterally Cardio Rate: tachycardic Rhythm: regular rhythm Peripheral pulses: Peripheral pulses 2+ throughout GI Inspection: Yes normal to inspection, No Abdominal wall edema and No distended Palpation (GI): Soft to palpation, not firm, nontender, no guarding and not rigid Auscultation: normal bowel sounds Back/Spine/Pelvis Back: No back tenderness Neuro General: patient oriented x3 Cranial nerves: Yes Equal, round and reactive pupils present Gait exam (Neuro): Other gait observations present (Limping with left lower extremity ) Motor exam (neuro): 5/5 motor strength present throughout Sensory Exam: No Sensory deficit (Neuro) Coordination: [id number] test normal, Normal rapid alternating movements of the distal upper extremity present (Neuro) and Normal rapid alternating movements of the distal lower extremity present (Neuro) Course Course Course Narrative: RME: 54-year-old male presents to ED for left arm left leg weakness since Wednesday. Patient states feeling off. Patient denies any slurred speech patient has droop or paralysis. Patient is found to be hypertensive systolic 209 at triage. Negative for facial droop, slurred speech, loss of vision, paralysis of extremities. Upper extremities 5+ strength. Left leg 4+ strength right lower extremity 5+ strength. Patient to be brought into the ED for elevated blood pressure. Patient has all the window for stroke protocol. Reevaluation(s) Reevaluation #1: Patient is afebrile, tachycardic, and hypertensive. I initially came to the attention of this patient after reviewing his quite abnormal EKG. He does not have a prior available in our system for review. EKG independently interpreted by myself: NSR 95BPM with T wave inversions in V4 - V6, ST elevations in V2 - V3. I can see a prior exercise stress test from 03/31/2019 which was positive and suggestive of ischemia. He did not ever follow up after this test. NIHSS 0. Patient is well outside of the window for tnk. Will proceed with CTA Head/Neck. Provided ASA 81mg PO. Labs reviewed. Negative troponin. I did discuss the case with cardiology Dr. Cartagena who was provided a copy of the EKG for evaluation. Agreed with plan for admission. CTA Head/Neck unremarkable. Plan: Admit to hospitalist Condition: Stable Medications Administered Generic Name Dose Route Start Last Admin Trade Name Ferminq PRN Reason Stop Dose Admin Amlodipine Besylate 10 mg 08/07/24 10:15 08/07/24 11:50 Amlodipine Besylate 10 Mg Tablet PO 10 mg DAILY PARK Administration Protocol Aspirin 81 mg 08/07/24 09:00 08/07/24 09:18 Aspirin Enteric Coated 81 Mg Tablet. PO 81 mg DAILY PARK Administration Atorvastatin Calcium 80 mg 08/07/24 09:00 08/07/24 09:18 Atorvastatin Calcium 80 Mg Tablet PO 80 mg DAILY PARK Administration Heparin Sodium (Porcine) 5,000 unit 08/06/24 22:00 08/07/24 14:27 Heparin Sodium,Porcine 5,000 Unit/Ml Vial SUBCUT 5,000 unit Q8H PARK Administration Insulin Human Lispro 0 unit 08/07/24 07:30 08/07/24 11:52 Insulin Lispro 100 Unit/Ml 3 Ml Vial SUBCUT Not Given QIDACHS [facility] Protocol Losartan Potassium 50 mg 08/07/24 10:15 08/07/24 11:51 Losartan Potassium 50 Mg Tablet PO 50 mg DAILY [facility] Administration Protocol Sodium Chloride 3 ml 08/07/24 00:00 08/07/24 07:24 0.9 % Sodium Chloride Flush 3 Ml Syringe IVFLUSH 3 ml QSHIFT [facility] Administration Discontinued Medications Generic Name Dose Route Start Last Admin Trade Name Sheng PRN Reason Stop Dose Admin Aspirin 81 mg 08/06/24 18:19 08/06/24 18:25 Aspirin 81 Mg Tab.Chew PO 08/06/24 18:20 81 mg ONCE ONE Administration Iohexol 100 ml 08/06/24 18:10 08/06/24 18:10 Iohexol 350 Mg/Ml 100 Ml Infus..Btl IV 08/06/24 18:11 70 ml ONCE ONE Administration Medical Decision Making Lab Data 08/07/24 05:30 08/07/24 05:30 Labs: Lab Results 08/06/24 Range/Units 17:10 WBC 10.8 (4.8-10.8) X10*3/uL RBC 4.65 (4.60-5.80) X10*6/uL Hgb 13.8 L (14.0-18.0) g/dl Hct 37.7 L (42.0-52.0) % MCV 81.1 (80.0-98.0) fL MCH 29.7 (27.0-33.0) pg MCHC 36.6 H (31.0-36.0) g/dl RDW 14.3 (11.0-16.0) % Plt Count 346 (160-400) X10*3/uL MPV 9.8 (9.4-12.4) fL Immature Gran % (Auto) 0.4 (0.0-0.4) % Neut % (Auto) 63.6 (45-73) % Lymph % (Auto) 27.8 (20-40) % Mclennan % (Auto) 7.1 (2-11) % Eos % (Auto) 0.7 (0-4) % Baso % (Auto) 0.4 (0-2) % Lymph # (Auto) 3.0 (1.2-4.9) X10*3/uL Mclennan # (Auto) 0.8 (0.1-1.2) X10*3/uL Eos # (Auto) 0.1 (0.0-0.4) X10*3/uL Baso # (Auto) 0.0 (0.0-0.2) X10*3/uL Abs Immat Gran (auto) 0.04 H (0.00-0.03) X10*3/uL Absolute Neuts (auto) 6.9 (2.0-8.3) x10*3/uL Absolute Nucleated RBC 0.000 (0.0-0.012) X10*3/uL Nucleated RBC % (auto) 0.0 (0.0-0.2) /100WBC PT 11.4 (10.9-12.4) SEC INR 1.0 (0.9-1.1) APTT 32.5 (26.0-36.8) SEC Sodium 141 (135-145) mmol/L Potassium 4.1 (3.3-5.1) mmol/L Chloride 107 (96-108) mmol/L Carbon Dioxide 24 (22-29) mmol/L Anion Gap 14 (12-20) BUN 12 (9-16) mg/dL Creatinine 0.87 (0.5-1.4) mg/dL Estim Creat Clear Calc 88.5 Estimated GFR > 60 Random Glucose 224 H (60-115) mg/dL Calcium 9.3 (8.4-10.2) mg/dL Total Bilirubin 0.5 (0.0-1.0) mg/dL AST 27 (5-37) U/L ALT 20 (0-40) U/L Alkaline Phosphatase 93 (39-117) U/L Troponin I High Sens < 2.7 (<3.5-35.0) ng/L Total Protein 6.9 (6.5-8.0) g/dL Albumin 4.2 (3.5-5.0) g/dL Radiology Impression Discussion of test interpretation with radiology: I have reviewed the radiologist's reading. Radiologist Impression: CLINICAL HISTORY: Left arm and leg weakness x3 days 2 view chest x-ray Comparison: None Findings: Normal size heart. No consolidation, pleural effusion or pneumothorax. No acute fracture. IMPRESSION: 1. No acute findings. This document has been electronically signed by: Karen Nicole MD on 08/06/2024 18:09:45 CLINICAL HISTORY: Left arm and leg weakness x3 days CT angiography head and neck with contrast. 3D Postprocessing. Comparison: None Findings: Aortic arch and cervical great vessels are patent. Minimal calcified plaque at right carotid bifurcation. No stenosis. Bilateral internal and external carotid arteries are patent. Bilateral vertebral arteries are patent. Intracranial arteries are patent. No intracranial large vessel occlusion. No aneurysm. Overall symmetric branching pattern. No abnormal intracranial enhancement. The visualized thyroid gland is unremarkable. No cervical mass or fluid collection. Lung apices clear. No acute fracture. IMPRESSION: Patent head and neck CTA. This document has been electronically signed by: Karen Nicole MD on 08/06/2024 20:25:07 Discharge Plan Discharge Clinical Impression: Left arm weakness, Left leg weakness, Hypertension Patient Disposition: Admitted As Inpatient Interventions: Admission Worksheet (ED) Last Done: 08/07/24 08:17 Discharge Date/Time: 08/07/24 09:26
[2024-08-06 17:15] LABS: MANUAL DIFF FLAG NO
[2024-08-06 17:18] LABS: Basophils Percent Auto 0.4 % (0-2); Eosinophils Absolute Auto 0.1 X10*3/uL (0.0-0.4); Eosinophils Percent Auto 0.7 % (0-4); Hematocrit 37.7 % (42.0-52.0); Hemoglobin 13.8 g/dl (14.0-18.0); Imm Gran Abs Auto 0.04 X10*3/uL (0.00-0.03); Imm Gran Pct Auto 0.4 % (0.0-0.4); Lymphocytes Percent Auto 27.8 % (20-40); Mean Corpuscular HGB Conc 36.6 g/dl (31.0-36.0); Mean Corpuscular Hemoglobin 29.7 pg (27.0-33.0); Mean Corpuscular Volume 81.1 fL (80.0-98.0); Mean Platelet Volume 9.8 fL (9.4-12.4); Monocytes Absolute Auto 0.8 X10*3/uL (0.1-1.2); Monocytes Percent Auto 7.1 % (2-11); Neutrophils Absolute Auto 6.9 x10*3/uL (2.0-8.3); Neutrophils Percent Auto 63.6 % (45-73); Platelet Count 346 X10*3/uL (160-400); Red Blood Count 4.65 X10*6/uL (4.60-5.80); Red Cell Distribution Width 14.3 % (11.0-16.0); White Blood Count 10.8 X10*3/uL (4.8-10.8)
[2024-08-06 17:26] LABS: Prothrombin Time 11.4 SEC (10.9-12.4)
[2024-08-06 17:28] LABS: Partial Thromboplastin Time 32.5 SEC (26.0-36.8)
[2024-08-06 17:31] LABS: Alanine Aminotransferase 20 U/L (0-40); Albumin Level 4.2 g/dL (3.5-5.0); Alkaline Phosphatase 93 U/L (39-117); Anion Gap 14 (12-20); Aspartate Amino Transferase 27 U/L (5-37); Bilirubin Total 0.5 mg/dL (0.0-1.0); Blood Urea Nitrogen 12 mg/dL (9-16); Calcium 9.3 mg/dL (8.4-10.2); Carbon Dioxide 24 mmol/L (22-29); Chloride 107 mmol/L (96-108); Creatinine Clr Calc Pharmacy 88.5; Estimated Glomerular Filt Rate > 60; Glucose Random 224 mg/dL (60-115); Potassium 4.1 mmol/L (3.3-5.1); Sodium 141 mmol/L (135-145); Total Protein 6.9 g/dL (6.5-8.0)
[2024-08-06 17:38] LABS: Troponin-I High Sensitivity < 2.7 ng/L (<3.5-35.0)
[2024-08-06 18:00] VITALS: BP 192/95; PULSE 93; RESP 16; TEMP 36.8; O2SAT 97
[2024-08-06] MEDS: iohexoL 350 MG/ML 100 ML INFUS..BTL IV (18:10)
--- NOTE | 2024-08-06 18:15 | PC.NURSE ---
Pt able to ambulate well.
[2024-08-06] MEDS: Aspirin 81 MG TAB.CHEW PO (18:25)
--- NOTE | 2024-08-06 18:28 | PHA.MEDREC ---
Pharmacy Consult ? Medication Reconciliation Pharmacy has completed the medication reconciliation. Spoke with patient to confirm medications. He only had morning dose of metformin today.
[2024-08-06 20:00] VITALS: BP 187/115
--- NOTE | 2024-08-06 20:42 | ECG_ITS ---
Test Reason : high bp Blood Pressure : */* mmHG Vent. Rate : 75 BPM Atrial Rate : 75 BPM P-R Int : 166 ms QRS Dur : 72 ms QT Int : 370 ms P-R-T Axes : 69 72 158 degrees QTcB Int : 413 ms Normal sinus rhythm Minimal voltage criteria for LVH, may be normal variant ( Sokolow-Ball ) T wave abnormality, consider anterolateral ischemia Abnormal ECG When compared with ECG of 06-Aug-2024 17:04, Nonspecific T wave abnormality has replaced inverted T waves in Inferior leads Referred By: Shayla Little Electronically Signed By: Camilo Shipley
[2024-08-06 21:08] VITALS: BP 185/102; PULSE 72; RESP 16; TEMP 37; O2SAT 97
--- NOTE | 2024-08-06 21:09 | MHC.EDTECH ---
Rounding done ,vitals taken ,repeated ekg done and was read by Provider ,Patient is hooked up to continuous salad counter attendant ,Patient belongings list done ,RN peri is aware of Pt high blood Pressure ,Patient watching television ,Call talavera within Pt reach .
--- NOTE | 2024-08-06 21:37 | P.HPHOSP_ITS ---
History of Present Illness Date of Service: 08/06/24 Chief Complaint: Left leg weakness 54-year-old male with a past medical history of HTN, dm, tobacco dependence presented to the hospital with a chief complaint of left leg weakness. Patient reports that since Wednesday he has been having left leg weakness. When he tries to walk he has dragging his left leg. Denies any numbness or tingling. Briefly he failed left upper extremity weakness but currently denies any symptoms in the left upper extremity. Patient denies any fever chills cough or sputum production. Denies any headaches or blurry visions. Denies any chest pain or palpitations. Denies any GI symptoms. Review of all other systems is negative except mentioned above ER course: Per ER team, patient reports having left leg weakness; on exam noted fairly equal strength. CT head and CT angio head and neck showed no acute findings. EKG showed biphasic T-waves in V3. Discussed with Dr. Cartagena from Cardiology who mentioned EKG is not concerning for any acute ischemia. And will be evaluated in the morning. Troponins negative. [facility] Medical History Diabetes mellitus type 2, controlled, without complications Diabetes mellitus Willis palsy Family History Father No problems noted. Mother Diabetes Hypertension Hyperlipidemia Surgical History Hx of eye surgery No pertinent past surgical history Social History Household Members: Family Housing: House Alcohol intake: current Alcohol intake frequency: does not drink Patient Tobacco Use Status: Current everyday Tobacco user Tobacco use type: Cigarette Cigarette Packs Per Day: 0.5 Cigarettes Per Day: 10.0 Years Smoked: 10 e-Cigarette/Vaping Use: Never Used Second Hand Smoke Exposure: Yes Advance Directives: No Advance Directives Information Provided: No Do you have a plan to hurt others: No Plan service: No Current occupational status: employed Cognitive needs: No Hearing needs: No Vision needs: Yes Meds Allergies Allergy/AdvReac Type Severity Reaction Status Date / Time Penicillins [PENICILLINS] Allergy Severe ANAPHYLAXIS Verified 08/06/24 16:43 Active Medications: Current Medications Dextrose (Dextrose 50 % 25 Gm/50 Ml Syringe) 25 gm IVPUSH Q15M PRN; Protocol PRN Reason: per Hypoglycemia Standing Ord. Glucose (Glucose Gel 15 Gm Gel..Gram.) 15 gm PO Q15M PRN; Protocol PRN Reason: per Hypoglycemia Standing Ord. Insulin Human Lispro (Insulin Lispro 100 Unit/Ml 3 Ml Vial) 0 unit SUBCUT QIDACHS [facility]; Protocol Home Medications ?Medication ?Instructions ?Recorded ?Confirmed ?Last Taken ?Type multivitamin 1 tab PO DAILY 01/05/20 08/06/24 Unknown History Physical Exam 2 Vital Signs and Narrative: Vital Signs: Last Vital Signs Temp 98.6 F 08/06/24 21:08 Pulse 72 08/06/24 21:08 Resp 16 08/06/24 21:08 BP 185/102 H 08/06/24 21:08 Pulse Ox 97 08/06/24 21:08 O2 Del Method Room Air 08/06/24 21:08 BMI result Body Mass Index 19.2 Gen: Appears be in no acute distress HEENT: NCAT, Moist mucosa. Pulmonary: Vesicular breath sounds, fair air entry CVS: Normal S1-S2 Abdomen: BS+, Soft, Nontender Extremities: Warm well perfused Neuro: Alert and awake. Oriented x3. Cranial nerves intact. Sensations intact bilaterally. Strength equal bilaterally-5/5. Gait: Patient reports that on ambulation he was not able to use the left lower extremity and is dragging it. Results Labs 08/06/24 17:10 08/06/24 17:10 Labs: Laboratory Results - last 24 hr 08/06/24 17:10 MCV 81.1 MCH 29.7 MCHC 36.6 H RDW 14.3 Plt Count 346 MPV 9.8 Immature Gran % (Auto) 0.4 Neut % (Auto) 63.6 Lymph % (Auto) 27.8 [place] % (Auto) 7.1 Eos % (Auto) 0.7 Baso % (Auto) 0.4 Lymph # (Auto) 3.0 [place] # (Auto) 0.8 Eos # (Auto) 0.1 Baso # (Auto) 0.0 Abs Immat Gran (auto) 0.04 H Absolute Neuts (auto) 6.9 Absolute Nucleated RBC 0.000 Nucleated RBC % (auto) 0.0 PT 11.4 INR 1.0 APTT 32.5 Anion Gap 14 Estim Creat Clear Calc 88.5 Estimated GFR > 60 Random Glucose 224 H Calcium 9.3 Total Bilirubin 0.5 AST 27 ALT 20 Alkaline Phosphatase 93 Total Protein 6.9 Albumin 4.2 Assessment and Plan (1) Left leg weakness: Status: Acute Plan 54-year-old male with a past medical history of HTN, dm, tobacco dependence presented to the hospital with a chief complaint of left leg weakness. Left leg weakness: While in the bed patient had equal strength bilaterally but on ambulation reports he is dragging the left leg. Otherwise neuro exam is benign CT head and CT angio head and neck showed no acute findings Will obtain MRI brain Echo with bubble study PT/OT/DIRECTOR OF BUSINESS APPLICATIONS eval Continue aspirin statin Neurology consult for further recommendations Fall precautions Will obtain TSH, lipid profile Abnormal EKG: EKG showed biphasic T-waves in V3. T-wave inversions in V4 and V5. No prior EKG to compare. Patient denies any chest pain. EKG was evaluated by Dr. Cartagena-suggested less concern for an acute ischemia. Telemetry Echocardiogram Cardiology consult for further recommendations Diabetes: Insulin sliding scale Hypertension: Will maintain permissive hypertension for now DVT prophylaxis: sqh Code status: Full code Quality Stroke Does the patient have a stroke diagnosis?: No VTE Prior VTE?: No VTE Risk Level:: Medical - moderate - high VTE Device Contraindication: Treatment Not Indicated VTE Drug Contraindication: N/A - Med Ordered
[2024-08-06 22:08] VITALS: BP 182/92; PULSE 77; RESP 20; TEMP 37.2; O2SAT 98
[2024-08-06] MEDS: Heparin Sodium,Porcine 5,000 UNIT/ML VIAL 5000 UNIT SUBCUT (22:09)
--- NOTE | 2024-08-06 22:15 | MHC.EDTECH ---
2200 rounding done ,vitals taken ,blood sugar check ,Patient was hungry ,was given tuna and turkey sandwich and kaylah yasemin for snack .
[2024-08-06 22:18] LABS: Glucose, Whole Blood 100 mg/dL (60-115)
[2024-08-07] VITALS (8 sets, daily range): BP systolic 152–180; BP diastolic 93–100; PULSE 64–82; RESP 15–18; TEMP 36.3–37.2; O2SAT 95–100
[2024-08-07] MEDS: 0.9 % Sodium Chloride Flush 3 ML SYRINGE IVFLUSH ×3 (00:38→20:44)
--- NOTE | 2024-08-07 00:47 | MHC.EDTECH ---
0000 ,rounding done ,vitals taken ,Patient asleep ,call [facility]avera within Pt reach .
[2024-08-07 05:51] LABS: Hematocrit 37.4 % (42.0-52.0); Hemoglobin 13.9 g/dl (14.0-18.0); Mean Corpuscular HGB Conc 37.2 g/dl (31.0-36.0); Mean Corpuscular Hemoglobin 30.1 pg (27.0-33.0); Mean Platelet Volume 9.8 fL (9.4-12.4); Platelet Count 346 X10*3/uL (160-400); Red Blood Count 4.62 X10*6/uL (4.60-5.80); Red Cell Distribution Width 14.2 % (11.0-16.0); White Blood Count 10.4 X10*3/uL (4.8-10.8)
[2024-08-07] MEDS: Heparin Sodium,Porcine 5,000 UNIT/ML VIAL 5000 UNIT SUBCUT ×3 (05:51→20:43)
[2024-08-07 06:07] LABS: Alanine Aminotransferase 24 U/L (0-40); Albumin Level 4.2 g/dL (3.5-5.0); Alkaline Phosphatase 91 U/L (39-117); Anion Gap 15 (12-20); Aspartate Amino Transferase 28 U/L (5-37); Bilirubin Total 0.7 mg/dL (0.0-1.0); Blood Urea Nitrogen 13 mg/dL (9-16); Calcium 9.3 mg/dL (8.4-10.2); Carbon Dioxide 23 mmol/L (22-29); Chloride 107 mmol/L (96-108); Cholesterol 218 mg/dL (<200); Creatinine Clr Calc Pharmacy 88.5; Estimated Glomerular Filt Rate > 60; Glucose Random 140 mg/dL (60-115); HDL Cholesterol 42 mg/dL (>40); LDL Cholesterol Calculated 160 mg/dL (<100); Sodium 141 mmol/L (135-145); Total Protein 6.7 g/dL (6.5-8.0); Triglycerides 83 mg/dL (<150)
[2024-08-07 07:05] LABS: Glucose, Whole Blood 159 mg/dL (60-115)
[2024-08-07] MEDS: Insulin Lispro 100 UNIT/ML 3 ML VIAL SUBCUT (07:24)
--- NOTE | 2024-08-07 07:41 | PC.NURSE ---
Addendum entered by Chelsey Ellington 08/07/24 07:45: pt given bath wipes for personal hygiene and a clean [place]. Original Note: assumed care of pt at 0700. pt a&ox4, hypertensive, other vss, medicated per MAR w sliding scale insulin, 20G PIV R AC flushed and patent. pt denies pain. reports cont'd difficulty ambulating d/t L leg weakness - strength equal bilaterally, neuro otherwise intact. MRI screening form completed w patient and faxed to MRI. per Dr Solis pt okay to go to MRI w/o cardiac monitoring. pt pending echo/MRI/bed assignment.
[2024-08-07] MEDS: Atorvastatin Calcium 80 MG TABLET PO (09:18)
[2024-08-07] MEDS: Aspirin Enteric Coated 81 MG TABLET.DR PO (09:18)
--- NOTE | 2024-08-07 10:13 | P.CONCA_ITS ---
History of Present Illness History of Present Illness Date of Service: 08/07/24 Chief complaint: LLE weakness Narrative: [age] year gentleman presenting with left lower extremity weakness. He said he noticed that he was dragging his foot and was weak. He also had some weakness in the left upper extremity. Blood pressure was significantly elevated and continues to be elevated. He is saying that he has been seeing his primary care doctor and was noticed to have elevated blood pressure and was getting some further workup for that. He has known diabetic and is on metformin. EKGs abnormal and is showing biphasic T-wave changes in the precordial leads but I think most changes are related to left ventricular hypertrophy. These changes are not dynamic. He has no chest discomfort or shortness of breath. Imaging and labs have been normal. [facility] Past Medical History Medical History Diabetes mellitus type 2, controlled, without complications Diabetes mellitus Willis palsy Family History Family History Father No problems noted. Mother Diabetes Hypertension Hyperlipidemia Surgical History Surgical History Hx of eye surgery No pertinent past surgical history Social History Social History Household Members: Family Housing: Apartment Do you presently have visiting nurse or other home services: No Alcohol intake: current Alcohol intake frequency: does not drink Patient Tobacco Use Status: Current everyday Tobacco user Tobacco use type: Cigarette Cigarette Packs Per Day: 0.5 Cigarettes Per Day: 10 Years Smoked: 10 e-Cigarette/Vaping Use: Never Used Second Hand Smoke Exposure: Yes service: No Current occupational status: employed Cognitive needs: No Hearing needs: No Vision needs: Yes Meds Allergies Allergy/AdvReac Type Severity Reaction Status Date / Time Penicillins [PENICILLINS] Allergy Severe ANAPHYLAXIS Verified 08/06/24 16:43 Active Medications: Current Medications Acetaminophen (Acetaminophen 325 Mg Tablet) 650 mg PO Q6H PRN PRN Reason: Pain, Mild 1-3,fever,headache Aspirin (Aspirin Enteric Coated 81 Mg Tablet.) 81 mg PO DAILY [facility] Last Admin: 08/07/24 09:18 Dose: 81 mg Atorvastatin Calcium (Atorvastatin Calcium 80 Mg Tablet) 80 mg PO DAILY [facility] Last Admin: 08/07/24 09:18 Dose: 80 mg Calcium Carbonate (Calcium Carbonate 750 Mg Tab.Chew) 750 mg PO Q4H PRN PRN Reason: Heartburn Dextrose (Dextrose 50 % 25 Gm/50 Ml Syringe) 25 gm IVPUSH Q15M PRN; Protocol PRN Reason: per Hypoglycemia Standing Ord. Glucose (Glucose Gel 15 Gm Gel..Gram.) 15 gm PO Q15M PRN; Protocol PRN Reason: per Hypoglycemia Standing Ord. Heparin Sodium (Porcine) (Heparin Sodium,Porcine 5,000 Unit/Ml Vial) 5,000 unit SUBCUT Q8H [facility] Last Admin: 08/07/24 05:51 Dose: 5,000 unit Insulin Human Lispro (Insulin Lispro 100 Unit/Ml 3 Ml Vial) 0 unit SUBCUT QIDACHS [facility]; Protocol Last Admin: 08/07/24 07:24 Dose: 2 unit Magnesium Hydroxide (Milk Of Magnesia 30 Ml Oral.Susp) 30 ml PO DAILY PRN PRN Reason: Constipation Melatonin (Melatonin 3 Mg Tablet) 6 mg PO BEDTIME PRN PRN Reason: Insomnia Sodium Chloride (0.9 % Sodium Chloride Flush 3 Ml Syringe) 3 ml IVFLUSH QSHIFT [facility] Last Admin: 08/07/24 07:24 Dose: 3 ml Home Medications ?Medication ?Instructions ?Recorded ?Confirmed ?Last Taken ?Type multivitamin 1 tab PO DAILY 01/05/20 08/06/24 Unknown History Physical Exam 2 Vital Signs: Vital Signs: Last Vital Signs Temp 99.0 F 08/07/24 09:57 Pulse 70 08/07/24 09:57 Resp 18 08/07/24 09:57 BP 180/100 H 08/07/24 09:57 Pulse Ox 96 08/07/24 09:57 O2 Del Method Room Air 08/07/24 09:57 BMI result Body Mass Index 19.2 GENERAL APPEARANCE: in no acute distress, pleasant. NECK: no carotid bruit, no jugular venous distention. SKIN: no suspicious lesions, warm and dry. HEART: no murmurs, regular rate and rhythm. LUNGS: clear to auscultation bilaterally. ABDOMEN: soft, nontender. EXTREMITIES: no edema. PERIPHERAL PULSES: equal. NEUROLOGIC: No gross deficits, AAO X 3 Objective Labs and Meds 08/07/24 05:30 08/07/24 05:30 Lab results: Laboratory Results - last 24 hr 08/06/24 08/06/24 08/07/24 17:10 22:14 05:30 WBC 10.8 10.4 RBC 4.65 4.62 Hgb 13.8 L 13.9 L Hct 37.7 L 37.4 L MCV 81.1 81.0 MCH 29.7 30.1 MCHC 36.6 H 37.2 H RDW 14.3 14.2 Plt Count 346 346 MPV 9.8 9.8 Immature Gran % (Auto) 0.4 Neut % (Auto) 63.6 Lymph % (Auto) 27.8 [place] % (Auto) 7.1 Eos % (Auto) 0.7 Baso % (Auto) 0.4 Lymph # (Auto) 3.0 [place] # (Auto) 0.8 Eos # (Auto) 0.1 Baso # (Auto) 0.0 Abs Immat Gran (auto) 0.04 H Absolute Neuts (auto) 6.9 Absolute Nucleated RBC 0.000 0.000 Nucleated RBC % (auto) 0.0 0.0 PT 11.4 INR 1.0 APTT 32.5 Sodium 141 141 Potassium 4.1 4.0 Chloride 107 107 Carbon Dioxide 24 23 Anion Gap 14 15 BUN 12 13 Creatinine 0.87 0.87 Estim Creat Clear Calc 88.5 88.5 Estimated GFR > 60 > 60 POC Glucose 100 Random Glucose 224 H 140 H Calcium 9.3 9.3 Total Bilirubin 0.5 0.7 AST 27 28 ALT 20 24 Alkaline Phosphatase 93 91 Troponin I High Sens < 2.7 Total Protein 6.9 6.7 Albumin 4.2 4.2 Triglycerides 83 Cholesterol 218 H LDL Cholesterol, Calc 160 H HDL Cholesterol 42 08/07/24 07:02 WBC RBC Hgb Hct MCV MCH MCHC RDW Plt Count MPV Immature Gran % (Auto) Neut % (Auto) Lymph % (Auto) [place] % (Auto) Eos % (Auto) Baso % (Auto) Lymph # (Auto) [place] # (Auto) Eos # (Auto) Baso # (Auto) Abs Immat Gran (auto) Absolute Neuts (auto) Absolute Nucleated RBC Nucleated RBC % (auto) PT INR APTT Sodium Potassium Chloride Carbon Dioxide Anion Gap BUN Creatinine Estim Creat Clear Calc Estimated GFR POC Glucose 159 H Random Glucose Calcium Total Bilirubin AST ALT Alkaline Phosphatase Troponin I High Sens Total Protein Albumin Triglycerides Cholesterol LDL Cholesterol, Calc HDL Cholesterol Assessment and Plan (1) Hypertension: Status: Acute (2) Abnormal EKG: Status: Acute Plan Pleasant 54 year gentleman who is here for left lower extremity weakness. He had workup done so far which has been normal. By exam he does not have any obvious deficits. He is significantly hypertensive. His EKGs abnormal and is showing left ventricular hypertrophy with biphasic T-wave changes in the precordial leads. He has no anginal symptoms. Biomarkers are negative. I think his blood pressure has been uncontrolled for long time and he probably has underlying left ventricular hypertrophy at this point. Adding losartan 50 mg daily. We will titrate blood pressure medication based on response. Echocardiography we will review. We will follow along with you. Currently no plan to do ischemic evaluation. Thank you for allowing me to participate in the care of your patient. Please feel free to contact me if you have any questions. Procedures Date of Service Date of Service: 08/07/24
--- NOTE | 2024-08-07 11:17 | P.CNNE_ITS ---
History of Present Illness Data of Consult Service Date: 08/07/24 Primary Care Provider: Rusty Cronin MD HPI Reason for consult: Left leg weakness 54 years old man with untreated hypertension, probably diabetes, and hyperlipidemia came to hospital with new onset of left leg weakness. Appeared probably a day before without any pain numbness or tingling. There was no triggering event or accident. Review of Systems 2 Review of Systems: No recent cold or flu-like illness trauma or pain PMFSH Past Medical History Medical History Diabetes mellitus type 2, controlled, without complications Diabetes mellitus Willis palsy Family History Family History Father No problems noted. Mother Diabetes Hypertension Hyperlipidemia Surgical History Surgical History Hx of eye surgery No pertinent past surgical history Social History Social History Household Members: Family Housing: Apartment Do you presently have visiting nurse or other home services: No Alcohol intake: current Alcohol intake frequency: does not drink Patient Tobacco Use Status: Current everyday Tobacco user Tobacco use type: Cigarette Cigarette Packs Per Day: 0.5 Cigarettes Per Day: 10 Years Smoked: 10 e-Cigarette/Vaping Use: Never Used Second Hand Smoke Exposure: Yes service: No Current occupational status: employed Cognitive needs: No Hearing needs: No Vision needs: Yes Meds Allergies Allergy/AdvReac Type Severity Reaction Status Date / Time Penicillins [PENICILLINS] Allergy Severe ANAPHYLAXIS Verified 08/06/24 16:43 Active Medications: Current Medications Acetaminophen (Acetaminophen 325 Mg Tablet) 650 mg PO Q6H PRN PRN Reason: Pain, Mild 1-3,fever,headache Amlodipine Besylate (Amlodipine Besylate 10 Mg Tablet) 10 mg PO DAILY [facility]; Protocol Aspirin (Aspirin Enteric Coated 81 Mg Tablet.) 81 mg PO DAILY [facility] Last Admin: 08/07/24 09:18 Dose: 81 mg Atorvastatin Calcium (Atorvastatin Calcium 80 Mg Tablet) 80 mg PO DAILY [facility] Last Admin: 08/07/24 09:18 Dose: 80 mg Calcium Carbonate (Calcium Carbonate 750 Mg Tab.Chew) 750 mg PO Q4H PRN PRN Reason: Heartburn Dextrose (Dextrose 50 % 25 Gm/50 Ml Syringe) 25 gm IVPUSH Q15M PRN; Protocol PRN Reason: per Hypoglycemia Standing Ord. Glucose (Glucose Gel 15 Gm Gel..Gram.) 15 gm PO Q15M PRN; Protocol PRN Reason: per Hypoglycemia Standing Ord. Heparin Sodium (Porcine) (Heparin Sodium,Porcine 5,000 Unit/Ml Vial) 5,000 unit SUBCUT Q8H [facility] Last Admin: 08/07/24 05:51 Dose: 5,000 unit Insulin Human Lispro (Insulin Lispro 100 Unit/Ml 3 Ml Vial) 0 unit SUBCUT QIDACHS [facility]; Protocol Last Admin: 08/07/24 07:24 Dose: 2 unit Losartan Potassium (Losartan Potassium 50 Mg Tablet) 50 mg PO DAILY [facility]; Protocol Magnesium Hydroxide (Milk Of Magnesia 30 Ml Oral.Susp) 30 ml PO DAILY PRN PRN Reason: Constipation Melatonin (Melatonin 3 Mg Tablet) 6 mg PO BEDTIME PRN PRN Reason: Insomnia Metformin HCl (Metformin Hcl 500 Mg Tablet) 500 mg PO BID [facility] Sodium Chloride (0.9 % Sodium Chloride Flush 3 Ml Syringe) 3 ml IVFLUSH QSHIFT [facility] Last Admin: 08/07/24 07:24 Dose: 3 ml Home Medications ?Medication ?Instructions ?Recorded ?Confirmed ?Last Taken ?Type multivitamin 1 tab PO DAILY 01/05/20 08/06/24 Unknown History Physical Exam 2 Vital Signs: Vital Signs: Last Vital Signs Temp 98.7 F 08/07/24 10:57 Pulse 64 08/07/24 10:57 Resp 18 08/07/24 10:57 BP 178/98 H 08/07/24 10:57 Pulse Ox 98 08/07/24 10:57 O2 Del Method Room Air 08/07/24 10:57 BMI result Body Mass Index 19.2 Neuro: Other: He is alert and awake with normal spontaneity of speech fluency comprehension and affect. Face is symmetrical. Visual teresa are full. There is mild left- sided drift. There was mild left-sided leg weakness. Plantars are flexor. Deep tendon reflexes are 1+. There was no visual or sensory extinction. Results Labs 08/07/24 05:30 08/07/24 05:30 Labs: Short CBC 08/06/24 08/07/24 Range/Units 17:10 05:30 WBC 10.8 10.4 (4.8-10.8) X10*3/uL Hgb 13.8 L 13.9 L (14.0-18.0) g/dl Hct 37.7 L 37.4 L (42.0-52.0) % Plt Count 346 346 (160-400) X10*3/uL BMP 08/06/24 08/07/24 17:10 05:30 Sodium 141 141 Potassium 4.1 4.0 Chloride 107 107 Carbon Dioxide 24 23 BUN 12 13 Creatinine 0.87 0.87 Calcium 9.3 9.3 Liver Function 08/06/24 08/07/24 Range/Units 17:10 05:30 Total Bilirubin 0.5 0.7 (0.0-1.0) mg/dL AST 27 28 (5-37) U/L ALT 20 24 (0-40) U/L Alkaline Phosphatase 93 91 (39-117) U/L Albumin 4.2 4.2 (3.5-5.0) g/dL Noncontrast CT and CTA of brain did not reveal any significant abnormality. Assessment and Plan (1) Cerebral infarction: Qualifiers: Cerebral infarction mechanism: thrombosis Precerebral and cerebral artery: unspecified cerebral artery Qualified Code(s): I63.30 - Cerebral infarction due to thrombosis of unspecified cerebral artery Status: Acute 54 years old man with untreated hypertension, hyperlipidemia, and probably diabetes came to hospital with new onset of painless left leg weakness. On examination he has mild left leg more than arm weakness. It is probably related to microvascular ischemic lesion related to multiple risk factors. I recommend noncontrast MRI of brain for definition. I recommend treatment with aspirin 81 mg daily, blood pressure control, statin, and appropriate management of blood sugar. PT OT consultation is also recommended. Stroke education is recommended Procedures Date of Service Date of Service: 08/07/24
[2024-08-07] MEDS: amLODIPine Besylate 10 MG TABLET PO (11:50)
[2024-08-07] MEDS: Losartan Potassium 50 MG TABLET PO (11:51)
[2024-08-07 12:04] LABS: Glucose, Whole Blood 120 mg/dL (60-115)
--- NOTE | 2024-08-07 12:25 | HO.PM.IMPN ---
Subjective Subjective Date of Service: 08/07/24 Interval History: Continues with left-sided weakness. No new issues over night Review of Systems Denies chest pain Denies shortness of breath Denies nausea vomiting diarrhea Denies fever chills Physical Exam Vital Signs: Vital Signs: Last Vital Signs Temp 98.7 F 08/07/24 10:57 Pulse 64 08/07/24 10:57 Resp 18 08/07/24 10:57 BP 178/98 H 08/07/24 10:57 Pulse Ox 98 08/07/24 10:57 O2 Del Method Room Air 08/07/24 10:57 BMI result Body Mass Index 19.2 Const: Other: Awake alert oriented x3 in no acute distress Resp: Other: Clear to auscultation bilaterally no rales rhonchi or wheezes Cardio: Other: No S4; positive S1-S2; no S3 murmurs rubs or gallops GI: Other: Soft nontender nondistended normoactive bowel sounds Neuro: Other: Cranial nerves 2-12 grossly intact as tested. Three to 4/5 left upper and lower extremities. Right upper extremities and lower extremity 5/5. Sensation is intact Extrem: Other: No edema bilaterally Objective Data Active Medications Acetaminophen (Acetaminophen 325 Mg Tablet) 650 mg PO Q6H PRN PRN Reason: Pain, Mild 1-3,fever,headache Amlodipine Besylate (Amlodipine Besylate 10 Mg Tablet) 10 mg PO DAILY [facility]; Protocol Last Admin: 08/07/24 11:50 Dose: 10 mg Documented By: DANA Aspirin (Aspirin Enteric Coated 81 Mg Tablet.) 81 mg PO DAILY [facility] Last Admin: 08/07/24 09:18 Dose: 81 mg Documented By: JOHN Atorvastatin Calcium (Atorvastatin Calcium 80 Mg Tablet) 80 mg PO DAILY [facility] Last Admin: 08/07/24 09:18 Dose: 80 mg Documented By: JOHN Calcium Carbonate (Calcium Carbonate 750 Mg Tab.Chew) 750 mg PO Q4H PRN PRN Reason: Heartburn Dextrose (Dextrose 50 % 25 Gm/50 Ml Syringe) 25 gm IVPUSH Q15M PRN; Protocol PRN Reason: per Hypoglycemia Standing Ord. Glucose (Glucose Gel 15 Gm Gel..Gram.) 15 gm PO Q15M PRN; Protocol PRN Reason: per Hypoglycemia Standing Ord. Heparin Sodium (Porcine) (Heparin Sodium,Porcine 5,000 Unit/Ml Vial) 5,000 unit SUBCUT Q8H [facility] Last Admin: 08/07/24 05:51 Dose: 5,000 unit Documented By: MARCELL Insulin Human Lispro (Insulin Lispro 100 Unit/Ml 3 Ml Vial) 0 unit SUBCUT QIDACHS [facility], [facility]; Protocol Last Admin: 08/07/24 11:52 Dose: Not Given Documented By: DANA Non-Admin Reason: No Insulin Coverage Losartan Potassium (Losartan Potassium 50 Mg Tablet) 50 mg PO DAILY [facility]; Protocol Last Admin: 08/07/24 11:51 Dose: 50 mg Documented By: DANA Magnesium Hydroxide (Milk Of Magnesia 30 Ml Oral.Susp) 30 ml PO DAILY PRN PRN Reason: Constipation Melatonin (Melatonin 3 Mg Tablet) 6 mg PO BEDTIME PRN PRN Reason: Insomnia Metformin HCl (Metformin Hcl 500 Mg Tablet) 500 mg PO BID [facility] Sodium Chloride (0.9 % Sodium Chloride Flush 3 Ml Syringe) 3 ml IVFLUSH QSHIFT [facility] Last Admin: 08/07/24 07:24 Dose: 3 ml Documented By: DAVIDDENL Labs 08/07/24 05:30 08/07/24 05:30 Labs: Laboratory Results - last 24 hr 08/06/24 08/06/24 08/07/24 17:10 22:14 05:30 MCV 81.1 81.0 MCH 29.7 30.1 MCHC 36.6 H 37.2 H RDW 14.3 14.2 Plt Count 346 346 MPV 9.8 9.8 Immature Gran % (Auto) 0.4 Neut % (Auto) 63.6 Lymph % (Auto) 27.8 [place] % (Auto) 7.1 Eos % (Auto) 0.7 Baso % (Auto) 0.4 Lymph # (Auto) 3.0 [place] # (Auto) 0.8 Eos # (Auto) 0.1 Baso # (Auto) 0.0 Abs Immat Gran (auto) 0.04 H Absolute Neuts (auto) 6.9 Absolute Nucleated RBC 0.000 0.000 Nucleated RBC % (auto) 0.0 0.0 PT 11.4 INR 1.0 APTT 32.5 Anion Gap 14 15 Estim Creat Clear Calc 88.5 88.5 Estimated GFR > 60 > 60 POC Glucose 100 Random Glucose 224 H 140 H Calcium 9.3 9.3 Total Bilirubin 0.5 0.7 AST 27 28 ALT 20 24 Alkaline Phosphatase 93 91 Total Protein 6.9 6.7 Albumin 4.2 4.2 Triglycerides 83 Cholesterol 218 H LDL Cholesterol, Calc 160 H HDL Cholesterol 42 08/07/24 08/07/24 07:02 11:03 MCV MCH MCHC RDW Plt Count MPV Immature Gran % (Auto) Neut % (Auto) Lymph % (Auto) [place] % (Auto) Eos % (Auto) Baso % (Auto) Lymph # (Auto) [place] # (Auto) Eos # (Auto) Baso # (Auto) Abs Immat Gran (auto) Absolute Neuts (auto) Absolute Nucleated RBC Nucleated RBC % (auto) PT INR APTT Anion Gap Estim Creat Clear Calc Estimated GFR POC Glucose 159 H 120 H Random Glucose Calcium Total Bilirubin AST ALT Alkaline Phosphatase Total Protein Albumin Triglycerides Cholesterol LDL Cholesterol, Calc HDL Cholesterol Assessment and Plan (1) Cerebral infarction: Status: Acute (2) Diabetes mellitus type 2, controlled, without complications: Status: Acute (3) Hypertension: Status: Acute Plan 54-year-old male with a past medical history of HTN, dm, tobacco dependence presented to the hospital with a chief complaint of left leg weakness. 1. Cerebral infarction -losartan and amlodipine added for blood pressure control adjust as indicated -high-dose statin -aspirin 81 mg daily -PT/OT evaluation 2.Abnormal EKG: -appreciate cardiology input -Echocardiogram -aggressive control of blood pressure 3.Diabetes II -acceptable control on current therapies -lispro correctional scale -diabetic diet -adjust as indicated Full code Heparin Patient patient requires ongoing hospitalization to complete workup for cerebral infarction along with specialty consultation Quality Stroke Does the patient have a stroke diagnosis?: No VTE Prior VTE?: No VTE Risk Level:: Medical - moderate - high VTE Device Contraindication: Treatment Not Indicated VTE Drug Contraindication: N/A - Med Ordered
--- NOTE | 2024-08-07 12:39 | MHC.CM.PN ---
EMR REVIEWD, PT W/LLE WEAKNESS, CM MET W/PT WHO REPORTS HE LIVES W/FAMILY, IS INDEP W/CARE AT BASELINE, HAS A GLUCOMETER FOR DME, PT REPORTS HE ONLY TAKES METFORMIN BID NO INSULIN, PT'S GOAL FOR DC IS HOME HOWEVER SPEECH/OT/PT PENDING. PT VERIFIES PCP IS DR. NG AND HAS BEEN EDUCATED ON AND DECLINES TO COMPLETE A HCP AT THIS TIME.
--- NOTE | 2024-08-07 12:48 | MHC.SP.ADU ---
Referring provider: Arnold Parra Reason for Referral: Cognition Evaluation Type of Treatment: 77790 Standardized Cognitive Performance Testing, per hour Date of Plan of Treatment: 08/06/24 Onset of Symptoms/Illness: 08/06/24 Date Treatment Started: 08/07/24 Medical Diagnosis: L sided weakness (lower extremity) Primary Speech Language Diagnosis: Cognitive/linguistic functioning WNL Secondary Speech Language Diagnosis: History Pt is 54 y/o M with PMH HTN, DM, tobacco use who presented to ED d/t weakness of L leg. Head and neck CT non-acute. Neurology consult pending at time of [facility]STA [facility]ER evaluation. No dysphagia or dysarthria evident. Medical History: Other: Medication List: Recent Hospitalizations: No Respiratory Needs: Room Air Patient Orientation: Alert & Oriented x 4 Social History: Employment Status: Client Associate Employed Highest level of education obtained: Completed High School/GED Current Living Situation: Assistive Devices in use: Glasses/Contacts Comment: Past Speech Language Therapy: Other Therapies Seen in Current Calendar Year: Other: Swallowing History: Dysphagia Specific: Comments: Pre-eval Risk for Aspiration: Pre-evaluation Dietary Consistencies: Pre-eval Liquid Intake: Pre-eval Medication Intake: Reported Speech, Language, Cognition difficulties: Not Applicable Comments: Cognitive/linguistic functioning WFL, pt endorses his communication to be at baseline. Pt endorsed being upset that his L leg is not moving. Quality of Life: Patient Stated Goal of Speech-Language Therapy: Assessment Speech Production: Within Functional Limits Slurred Clinical Impression: Observations: Informal Voice Assessment: Voice Loudness: Normal Voice Nasal Resonance: Normal Voice Oral Resonance: Normal Voice Phonatory-based Quality: Normal Voice Pitch: Voice Other Observations: Clinical Impression: Intact Clinicial Observations: Tests of Speech & Lang Adults: BDAE Clinical Impression: Intact Observations: Pt presents with minimal discernible speech difficulties in articulatory agility, phrase length, grammatical form, melodic line (prosody), word finding relative to fluency, sentence repetition, and auditory comprehension. [facility]KER provided education and recommended pt report any cognitive/communicative changes to MD for more formal assessment. Pt in agreement with PA[facility]ER recommendations. No further [facility]ER intervention indicated at this time. Tests of Cognition: Clinical Impression: Observations: Augmentative and Alternative Communication: Observations: Impressions and Recommendations Summary: Impact on Daily Function/Activity Limitations: Daily Activities: Interpersonal Interactions: Education: Employment: Community: Prognosis for Improvement: Good Comment: Recommendation for Speech Therapy: NA:Typical Evaluation Recommended Referrals to be Discussed with Primary Care Provider: Patient Education: Completed: Yes Patient/Caregiver Education: Described Results of Evaluation Patient expressed understanding of evaluation Comments/Barriers to Learning: Continuity Coordinator Clinican/Clinical Fellow: No Supervisory Statement: N/A Speech Language Pathologist: Alisha Schulte M.S., [facility]
[2024-08-07 16:27] LABS: Glucose, Whole Blood 102 mg/dL (60-115)
--- NOTE | 2024-08-07 16:41 | MHC.CLN ---
NUTRITION DIET=DIABETIC 2000 KCALS. PATIENT WITH BMI=19.2. REPORTS GOOD APPETITE AND NO SIGNIFICANT WEIGHT CHANGE. PO INTAKE 100%. APPEARS THIN BUT NOT MALNOURISHED. RD TO FOLLOW UP WEEKLY.
[2024-08-07 20:20] LABS: Glucose, Whole Blood 118 mg/dL (60-115)
[2024-08-07] MEDS: metFORMIN HCl 500 MG TABLET PO (20:43)
[2024-08-08] VITALS (8 sets, daily range): BP systolic 137–166; BP diastolic 87–100; PULSE 64–124; RESP 16–18; TEMP 36.8–37.2; O2SAT 94–96
[2024-08-08] MEDS: Heparin Sodium,Porcine 5,000 UNIT/ML VIAL 5000 UNIT SUBCUT ×3 (05:50→22:43)
[2024-08-08 06:59] LABS: MANUAL DIFF FLAG NO
--- NOTE | 2024-08-08 07:00 | CA_ITS ---
Transthoracic Echocardiogram Patient (Last, First, Middle): Champ Hernandez C Gender: Male Date of : 1970 Age: 54 Procedure Date: 08/08/2024 Procedure Type: Transthoracic Echocardiogram Location: [facility] Height: 185.42 cm Weight: 65.77 kg BSA: 1.88 m2 Heart Rate: 93 bpm BP: 152 / 95 mmHg Housekeeping Staff: TEETEE Referring MD: Arnold Parra MD Symptoms: CVA Study Quality: Adequate ECG Rhythm: Sinus Conclusions: - Normal left ventricular size and systolic function. There is mildly increased left ventricular wall thickness. The visually estimated ejection fraction is between 65-70%. Diastolic function is normal for age. There is moderate septal asymmetric hypertrophy. - Normal right ventricular cavity size and systolic function. - There is no evidence of interatrial shunt by color Doppler and contrast. - There is mild dilatation of the sinuses of Valsalva measuring 3.70 cm. Findings Procedure Information The quality of the study was technically difficult. The study quality is limited by lung artifact. Left Ventricle Normal left ventricular size and systolic function. There is mildly increased left ventricular wall thickness. The visually estimated ejection fraction is between 65-70%. Diastolic function is normal for age. There is moderate septal asymmetric hypertrophy. Right Ventricle Normal right ventricular cavity size and systolic function. Atria The left atrium is normal in size. There is no evidence of interatrial shunt by color Doppler and contrast. The right atrium is normal in size. Aortic Valve Normal aortic valve structure and function. There is no aortic valve stenosis. There is no aortic valve regurgitation. Mitral Valve Normal mitral valve structure and function. There is no mitral valve regurgitation. There is no mitral valve stenosis. Pulmonic Valve The pulmonic valve is likely normal. Tricuspid Valve Normal tricuspid valve structure. There is no tricuspid valve regurgitation. Tricuspid regurgitation envelope is inadequate for calculation of right ventricular systolic pressure. Great Vessels There is mild dilatation of the sinuses of Valsalva measuring 3.70 cm. The visualized portions of the pulmonary artery and branches are normal. Venous The inferior vena cava is normal in size and collapses greater than 50% with inspiration. Pericardium/Pleural There is no evidence of pericardial effusion. Prior Study Comparison Changes noted compared to prior study dated: 05/12/2019. Moderate septal hypertrophy. Measurements 2D Linear Measurements IVSd: 1.06 0.6-0.9/0.6-1.0 cm LVIDd: 3.52 3.9-5.3/4.2-5.9 cm LVIDd Index: 1.87 2.4-3.2/2.2-3.1 cm/m2 LVIDs: 1.56 2.0-3.6 cm LVPWd: 1.31 0.7-1.1 cm LA Diam: 2.90 2.7-3.8/3.0-4.0 cm LAIDs Index: 1.54 1.5-2.3 cm/m2 LV Mass: 167.15 67-162/88-224 g LV Mass Index: 88.91 43-95/49-115 g/m2 LVOT Diam: 1.80 3.0+(-)1.3 cm 2D Systolic Function EF 4C: 63.00 >55% EF 2C: 63.50 >55% EF BiP: 62.50 >55% Mitral Valve MV Pk E: 0.59 MV PK A: 0.68 MV Decel Time: 146.00 E/A: 0.90 E'Lateral: 10.40 E'Medial: 5.00 E/E' Med: 11.70 E/E' Lat: 5.60 PHT: 43.00 MVA PHT: 5.12 Decel Ashley: 4.01 Aortic Valve AoV Pk Rigoberto: 1.29 AoV Mn Rigoberto: 0.90 AoV VTI: 0.20 AoV Pk Grad: 7.00 Aov Mn Grad: 4.00 GABRIELLA Cont.VTI: 2.37 LVOT LVOT Pk Rigoberto: 1.06 LVOT Mn Rigoberto: 0.76 LVOT VTI: 0.18 LVOT Pk Grad: 4.00 LVOT Mn Grad: 3.00 LVOT Diam: 1.80 LVOT Area: 2.54 Diastolic Function MV Pk E: 0.59 MV Pk A: 0.68 E/A: 0.90 E'Medial: 5.00 E/E' Med: 11.70 E' Laterial: 10.40 E/E' Lat: 5.60 Right Ventricle TAPSE (mm): 19.70 TVS' Rigoberto: 13.50 Tricuspid Valve RA Press: 3.00 Great Vessels Aorta Sinus of Valsalva: 3.70 2.0-3.5 cm Ao Arch: 3.10 Pulmonary Valve PV Pk Rigoberto: 1.44 Peak PV Grad: 8.00 Updated in Other Vendor System with Status of Final Camilo Shipley MD electronically signed on 08/09/2024 11:55:56 AM with status of Final
[2024-08-08 07:06] LABS: Basophils Percent Auto 0.4 % (0-2); Eosinophils Absolute Auto 0.1 X10*3/uL (0.0-0.4); Eosinophils Percent Auto 0.6 % (0-4); Hematocrit 42.9 % (42.0-52.0); Hemoglobin 15.7 g/dl (14.0-18.0); Imm Gran Abs Auto 0.04 X10*3/uL (0.00-0.03); Imm Gran Pct Auto 0.4 % (0.0-0.4); Lymphocytes Absolute Auto 2.4 X10*3/uL (1.2-4.9); Lymphocytes Percent Auto 22.2 % (20-40); Mean Corpuscular HGB Conc 36.6 g/dl (31.0-36.0); Mean Corpuscular Hemoglobin 29.5 pg (27.0-33.0); Mean Corpuscular Volume 80.6 fL (80.0-98.0); Mean Platelet Volume 9.8 fL (9.4-12.4); Monocytes Absolute Auto 0.8 X10*3/uL (0.1-1.2); Monocytes Percent Auto 7.4 % (2-11); Neutrophils Absolute Auto 7.3 x10*3/uL (2.0-8.3); Platelet Count 389 X10*3/uL (160-400); Red Blood Count 5.32 X10*6/uL (4.60-5.80); Red Cell Distribution Width 14.3 % (11.0-16.0); White Blood Count 10.6 X10*3/uL (4.8-10.8)
[2024-08-08 07:27] LABS: Alanine Aminotransferase 23 U/L (0-40); Albumin Level 4.5 g/dL (3.5-5.0); Alkaline Phosphatase 102 U/L (39-117); Anion Gap 14 (12-20); Aspartate Amino Transferase 30 U/L (5-37); Blood Urea Nitrogen 14 mg/dL (9-16); Calcium 9.6 mg/dL (8.4-10.2); Carbon Dioxide 24 mmol/L (22-29); Chloride 105 mmol/L (96-108); Creatinine Clr Calc Pharmacy 93.9; Estimated Glomerular Filt Rate > 60; Glucose Fasting 131 mg/dL (60-99); Sodium 139 mmol/L (135-145); Total Protein 7.5 g/dL (6.5-8.0)
[2024-08-08 07:56] LABS: Glucose, Whole Blood 135 mg/dL (60-115)
[2024-08-08] MEDS: amLODIPine Besylate 10 MG TABLET PO (09:22)
[2024-08-08] MEDS: Atorvastatin Calcium 80 MG TABLET PO (09:23)
[2024-08-08] MEDS: Aspirin Enteric Coated 81 MG TABLET.DR PO (09:23)
[2024-08-08] MEDS: Losartan Potassium 50 MG TABLET PO (09:23)
[2024-08-08] MEDS: metFORMIN HCl 500 MG TABLET PO ×2 (09:23→22:43)
[2024-08-08] MEDS: 0.9 % Sodium Chloride Flush 3 ML SYRINGE IVFLUSH ×3 (09:23→22:44)
--- NOTE | 2024-08-08 10:42 | MHC.CM.PN ---
Addendum entered by Joy Toscano 08/08/24 14:58: Pt has reconsidered and is now in agreement with going to acute rehab. Pts preference is [facility], he has accepted their bed offer, insurance auth is now pending. Addendum entered by Joy Toscano 08/08/24 11:37: Pts PCP Dr. Rusty Cronin retired, pt does not believe he has been assigned to a new PCP. This CM placed a call to the PCP's office to inquire, awaiting return call. This CM explained to the pt that he would not be able to have VNA services without a PCP. Original Note: EMR reviewed and per MD rounds, pt is medically cleared for discharge. PT recommended acute rehab. This CM met with pt to discuss the recommendations and he doesn't want to go to acute rehab, he would prefer to go home with VNA services. Pt has no VNA agency preference, broad referral placed, awaiting accepting VNA agency that can accept pts insurance.
[2024-08-08 12:25] LABS: Glucose, Whole Blood 103 mg/dL (60-115)
--- NOTE | 2024-08-08 12:45 | P.PNCA_ITS ---
Subjective Subjective Date of Service: 08/08/24 Interval history: Seen examined at bedside. MRI has shown subacute stroke. Blood pressure control is improving. Physical Exam Vital Signs: Last Vital Signs Temp 98.9 F 08/08/24 11:09 Pulse 99 08/08/24 11:09 Resp 18 08/08/24 11:09 BP 148/90 H 08/08/24 11:09 Pulse Ox 96 08/08/24 11:09 O2 Del Method Room Air 08/08/24 11:09 BMI result Body Mass Index 19.2 GENERAL APPEARANCE: in no acute distress, pleasant. NECK: no carotid bruit, no jugular venous distention. SKIN: no suspicious lesions, warm and dry. HEART: no murmurs, regular rate and rhythm. LUNGS: clear to auscultation bilaterally. ABDOMEN: soft, nontender. EXTREMITIES: no edema. PERIPHERAL PULSES: equal. NEUROLOGIC: No gross deficits, AAO X 3 Objective Labs and Meds 08/08/24 06:43 08/08/24 06:43 Lab results: Laboratory Results - last 24 hr 08/07/24 08/07/24 08/08/24 16:21 20:13 06:43 WBC 10.6 RBC 5.32 Hgb 15.7 Hct 42.9 MCV 80.6 MCH 29.5 MCHC 36.6 H RDW 14.3 Plt Count 389 MPV 9.8 Immature Gran % (Auto) 0.4 Neut % (Auto) 69.0 Lymph % (Auto) 22.2 [place] % (Auto) 7.4 Eos % (Auto) 0.6 Baso % (Auto) 0.4 Lymph # (Auto) 2.4 [place] # (Auto) 0.8 Eos # (Auto) 0.1 Baso # (Auto) 0.0 Abs Immat Gran (auto) 0.04 H Absolute Neuts (auto) 7.3 Absolute Nucleated RBC 0.000 Nucleated RBC % (auto) 0.0 Sodium 139 Potassium 4.0 Chloride 105 Carbon Dioxide 24 Anion Gap 14 BUN 14 Creatinine 0.82 Estim Creat Clear Calc 93.9 Estimated GFR > 60 POC Glucose 102 118 H Fasting Glucose 131 H Calcium 9.6 Total Bilirubin 1.0 AST 30 ALT 23 Alkaline Phosphatase 102 Total Protein 7.5 Albumin 4.5 08/08/24 08/08/24 07:20 11:17 WBC RBC Hgb Hct MCV MCH MCHC RDW Plt Count MPV Immature Gran % (Auto) Neut % (Auto) Lymph % (Auto) [place] % (Auto) Eos % (Auto) Baso % (Auto) Lymph # (Auto) [place] # (Auto) Eos # (Auto) Baso # (Auto) Abs Immat Gran (auto) Absolute Neuts (auto) Absolute Nucleated RBC Nucleated RBC % (auto) Sodium Potassium Chloride Carbon Dioxide Anion Gap BUN Creatinine Estim Creat Clear Calc Estimated GFR POC Glucose 135 H 103 Fasting Glucose Calcium Total Bilirubin AST ALT Alkaline Phosphatase Total Protein Albumin Imaging Radiologist's impression: Impressions Brain MRI 08/07/24 12:00 IMPRESSION: 1. Acute/subacute infarct in the right mid to posterior hull radiata measuring 2.0 x 1.1 x 1.8 cm (MCA perforators/lenticulostriate artery distribution). No associated mass effect. 2. No additional acute infarct, evidence of intracranial hemorrhage, mass effect, or edema. 3. Old infarct in the left anterior hull radiata. Old lacunar type infarct in the right medial cerebellum. Consider chronic hypertension. 4. Mild to moderate changes of small vessel ischemia. Electronically signed by: Harris Mtz MD 08/07/2024 01:01 PM EDT RP Progress Note: A&P Assessment and plan (1) Cerebral infarction: Status: Acute (2) Hypertension: Status: Acute Plan Pleasant 54 year gentleman who is here for uncontrolled blood pressure and CVA. MRI has shown subacute stroke. Blood pressure is elevated and is a likely cause for stroke. We discussed about good blood pressure control and close monitoring. He is currently on amlodipine 10 mg and losartan 50 mg daily. He is on aspirin and atorvastatin 80 mg daily. He will go to acute rehab. While at rehab is losartan should be titrated up to 100 mg daily depending on blood pressure readings. He will follow-up with us in few weeks in the office. Thank you for allowing me to participate in the care of your patient. Please feel free to contact me if you have any questions. Time Spent With Patient Time: Total time managing care of this patient today ____ minutes. Progress Note: Quality Stroke Does the patient have a stroke diagnosis?: No Procedures Date of Service Date of Service: 08/08/24
--- NOTE | 2024-08-08 14:02 | HO.PM.IMPN ---
Subjective Subjective Date of Service: 08/08/24 Interval History: No acute issues overnight. Now willing to go to acute rehab Review of Systems Denies chest pain Denies shortness of breath Denies nausea vomiting diarrhea Denies fever chills Physical Exam Vital Signs: Vital Signs: Last Vital Signs Temp 98.9 F 08/08/24 11:09 Pulse 99 08/08/24 11:09 Resp 18 08/08/24 11:09 BP 148/90 H 08/08/24 11:09 Pulse Ox 96 08/08/24 11:09 O2 Del Method Room Air 08/08/24 11:09 BMI result Body Mass Index 19.2 Const: Other: Awake alert oriented x3 in no acute distress Resp: Other: Clear to auscultation bilaterally no rales rhonchi or wheezes Cardio: Other: No S4; positive S1-S2; no S3 murmurs rubs or gallops GI: Other: Soft nontender nondistended normoactive bowel sounds Neuro: Other: Cranial nerves 2-12 grossly intact as tested. Three to 4/5 left upper and lower extremities. Right upper extremities and lower extremity 5/5. Sensation is intact Extrem: Other: No edema bilaterally Objective Data Active Medications Acetaminophen (Acetaminophen 325 Mg Tablet) 650 mg PO Q6H PRN PRN Reason: Pain, Mild 1-3,fever,headache Amlodipine Besylate (Amlodipine Besylate 10 Mg Tablet) [address] [facility]; Protocol Last Admin: 08/08/24 09:22 Dose: 10 mg Documented By: JOSE Aspirin (Aspirin Enteric Coated 81 Mg Tablet.) [address] [facility] Last Admin: 08/08/24 09:23 Dose: 81 mg Documented By: JOSE Atorvastatin Calcium (Atorvastatin Calcium 80 Mg Tablet) [address] [facility] Last Admin: 08/08/24 09:23 Dose: 80 mg Documented By: JOSE Calcium Carbonate (Calcium Carbonate 750 Mg Tab.Chew) 750 mg PO Q4H PRN PRN Reason: Heartburn Dextrose (Dextrose 50 % 25 Gm/50 Ml Syringe) 25 gm IVPUSH Q15M PRN; Protocol PRN Reason: per Hypoglycemia Standing Ord. Glucose (Glucose Gel 15 Gm Gel..Gram.) 15 gm PO Q15M PRN; Protocol PRN Reason: per Hypoglycemia Standing Ord. Heparin Sodium (Porcine) (Heparin Sodium,Porcine 5,000 Unit/Ml Vial) 5,[address] [facility] Last Admin: 08/08/24 13:43 Dose: 5,000 unit Documented By: JOSE Insulin Human Lispro (Insulin Lispro 100 Unit/Ml 3 Ml Vial) [address] [facility]; Protocol Last Admin: 08/08/24 12:40 Dose: Not Given Documented By: DANA Non-Admin Reason: No Insulin Coverage Losartan Potassium (Losartan Potassium 50 Mg Tablet) [address] [facility]; Protocol Last Admin: 08/08/24 09:23 Dose: 50 mg Documented By: JOSE Magnesium Hydroxide (Milk Of Magnesia 30 Ml Oral.Susp) 30 ml PO DAILY PRN PRN Reason: Constipation Melatonin (Melatonin 3 Mg Tablet) 6 mg PO BEDTIME PRN PRN Reason: Insomnia Metformin HCl (Metformin Hcl 500 Mg Tablet) [address] [facility] Last Admin: 08/08/24 09:23 Dose: 500 mg Documented By: JOSE Sodium Chloride (0.9 % Sodium Chloride Flush 3 Ml Syringe) [address] [facility] Last Admin: 08/08/24 09:23 Dose: 3 ml Documented By: JOSE Labs 08/08/24 06:43 08/08/24 06:43 Labs: Laboratory Results - last 24 hr 08/07/24 08/07/24 08/08/24 16:21 20:13 06:43 MCV 80.6 MCH 29.5 MCHC 36.6 H RDW 14.3 Plt Count 389 MPV 9.8 Immature Gran % (Auto) 0.4 Neut % (Auto) 69.0 Lymph % (Auto) 22.2 [place] % (Auto) 7.4 Eos % (Auto) 0.6 Baso % (Auto) 0.4 Lymph # (Auto) 2.4 [place] # (Auto) 0.8 Eos # (Auto) 0.1 Baso # (Auto) 0.0 Abs Immat Gran (auto) 0.04 H Absolute Neuts (auto) 7.3 Absolute Nucleated RBC 0.000 Nucleated RBC % (auto) 0.0 Anion Gap 14 Estim Creat Clear Calc 93.9 Estimated GFR > 60 POC Glucose 102 118 H Fasting Glucose 131 H Calcium 9.6 Total Bilirubin 1.0 AST 30 ALT 23 Alkaline Phosphatase 102 Total Protein 7.5 Albumin 4.5 08/08/24 08/08/24 07:20 11:17 MCV MCH MCHC RDW Plt Count MPV Immature Gran % (Auto) Neut % (Auto) Lymph % (Auto) [place] % (Auto) Eos % (Auto) Baso % (Auto) Lymph # (Auto) [place] # (Auto) Eos # (Auto) Baso # (Auto) Abs Immat Gran (auto) Absolute Neuts (auto) Absolute Nucleated RBC Nucleated RBC % (auto) Anion Gap Estim Creat Clear Calc Estimated GFR POC Glucose 135 H 103 Fasting Glucose Calcium Total Bilirubin AST ALT Alkaline Phosphatase Total Protein Albumin Assessment and Plan (1) Cerebral infarction: Status: Acute (2) Diabetes mellitus type 2, controlled, without complications: Status: Acute Plan 54-year-old male with a past medical history of HTN, dm, tobacco dependence presented to the hospital with a chief complaint of left leg weakness. 1. Cerebral infarction -increase losartan; continue amlodipine -high-dose statin -aspirin 81 mg daily -PT/OT evaluation... Recommend acute rehab. Patient willing 2.Abnormal EKG: -appreciate cardiology input -Echocardiogram -aggressive control of blood pressure 3.Diabetes II -acceptable control on current therapies -lispro correctional scale -diabetic diet -adjust as indicated Full code Heparin Patient patient requires ongoing hospitalization to complete workup for cerebral infarction along with specialty consultation Quality Stroke Does the patient have a stroke diagnosis?: No VTE Prior VTE?: No VTE Risk Level:: Medical - moderate - high VTE Device Contraindication: Treatment Not Indicated VTE Drug Contraindication: N/A - Med Ordered
--- NOTE | 2024-08-08 15:58 | MHC.STROKE ---
Met with patient in room 457. Pt awake, alert and oriented x 4. Speaking in full clear sentences. c/o mild weakness in left leg. Stroke education reviewed. Pamphlet and educational material provided. Risk factors discussed including medical hx, medications, diet, activity and social hx. We discussed smoking cessation. Pt declined nicotine patches. this is enough to make me stop . All questions answered. Awaiting transfer to [facility]. Will continue to assist as needed
[2024-08-08 16:46] LABS: Glucose, Whole Blood 128 mg/dL (60-115)
[2024-08-08 21:11] LABS: Glucose, Whole Blood 125 mg/dL (60-115)
[2024-08-09] VITALS: BP 130/85; PULSE 78; RESP 16; TEMP 36.3; O2SAT 96
[2024-08-09 03:49] VITALS: BP 128/83; PULSE 75; RESP 16; TEMP 36.3; O2SAT 96
[2024-08-09] MEDS: Heparin Sodium,Porcine 5,000 UNIT/ML VIAL 5000 UNIT SUBCUT (06:05)
[2024-08-09 07:18] VITALS: BP 137/75; PULSE 84; RESP 18; TEMP 36.6; O2SAT 96
[2024-08-09 07:44] LABS: Glucose, Whole Blood 136 mg/dL (60-115)
[2024-08-09] MEDS: Aspirin Enteric Coated 81 MG TABLET.DR PO (09:12)
[2024-08-09] MEDS: Losartan Potassium 50 MG TABLET PO (09:12)
[2024-08-09] MEDS: Atorvastatin Calcium 80 MG TABLET PO (09:12)
[2024-08-09] MEDS: amLODIPine Besylate 10 MG TABLET PO (09:12)
[2024-08-09] MEDS: metFORMIN HCl 500 MG TABLET PO (09:12)
[2024-08-09] MEDS: 0.9 % Sodium Chloride Flush 3 ML SYRINGE IVFLUSH (09:16)
--- NOTE | 2024-08-09 10:33 | MHC.CM.PN ---
Insurance auth received for pt to go to acute rehab at [facility] today via BLS, pt is aware and in agreement with discharge plan.
[2024-08-09 11:13] LABS: Glucose, Whole Blood 175 mg/dL (60-115)
[2024-08-09] MEDS: Insulin Lispro 100 UNIT/ML 3 ML VIAL SUBCUT (11:51)
--- NOTE | 2024-08-09 12:44 | P.DS_ITS ---
DS: Providers Provider Date of Service: 08/09/24 Date of admission: 08/06/24 21:34 Date of discharge: 08/09/24 Primary care physician: Rusty Cronin MD Consults: 08/06/24 21:33 Consult to Cardiology Routine Consulting Provider: [facility] Reason for consultation: abnormal ekg Consult to Neurology Routine Consulting Provider: [facility] Reason for consultation: LLE weakness DS: Diagnosis Discharge Diagnosis (1) Cerebral infarction: Status: Acute (2) Diabetes mellitus type 2, controlled, without complications: Status: Acute DS: Summary Hospital Course Hospital Course: 54-year-old male with a past medical history of HTN, dm, tobacco dependence presented to the hospital with a chief complaint of left leg weakness. Patient reports that since Wednesday he has been having left leg weakness. When he tries to walk he has dragging his left leg. Denies any numbness or tingling Hospital Course Admitted to telemetry where monitor failed to demonstrate any acute abnormalities. MRI demonstrated acute/subacute infarct in the right mid to posterior hull radiata measuring 2.0 x 1.1 x 1.8 cm. Neurology note 54 years old man with untreated hypertension, hyperlipidemia, and probably diabetes came to hospital with new onset of painless left leg weakness. On examination he has mild left leg more than arm weakness. It is probably related to microvascular ischemic lesion related to multiple risk factors. I recommend noncontrast MRI of brain for definition. I recommend treatment with aspirin 81 mg daily, blood pressure control, statin, and appropriate management of blood sugar. PT OT consultation is also recommended. Seen by Physical therapy who recommends acute rehab. At this point in time he is medically acceptable for same and may be transported when bed available Time Attestation Discharge Coordination Time (in mins): 35 Quality: Safe Use of Opioids Does Pt have an Active Cancer Diagnosis on the Problem List?: No Quality: Stroke Does the patient have a stroke diagnosis?: Yes Reason for No Anti-thrombotic at DC: N/A - Med Ordered Reason for No Anticoagulant at DC: Drug treatment not indicated Reason Not Initiating IV-Tpa: Drug treatment not indicated Reason for No Anti-thrombotic by Day Two: N/A - Med Ordered Reason for No Statin at DC: N/A - Med Ordered Physical Exam Vital Signs: Vital Signs: Last Vital Signs Temp 97.8 F 08/09/24 07:18 Pulse 84 08/09/24 07:18 Resp 18 08/09/24 07:18 BP 137/75 08/09/24 07:18 Pulse Ox 96 08/09/24 07:18 O2 Del Method Room Air 08/09/24 07:18 BMI result Body Mass Index 19.2 Const: Other: Awake alert oriented x3 in no acute distress Resp: Other: Clear to auscultation bilaterally no rales rhonchi or wheezes Cardio: Other: No S4; positive S1-S2; no S3 murmurs rubs or gallops GI: Other: Soft nontender nondistended normoactive bowel sounds Neuro: Other: Cranial nerves 2-12 grossly intact as tested. Three to 4/5 left upper and lower extremities. Right upper extremities and lower extremity 5/5. Sensation is intact Extrem: Other: No edema bilaterally DS: Data Data Completed and Pending Labs on day of discharge: Laboratory Results - last 24 hr 08/08/24 08/08/24 08/09/24 15:50 21:05 07:22 POC Glucose 128 H 125 H 136 H 08/09/24 11:02 POC Glucose 175 H Discharge Plan Discharge Anticipated Discharge Date/Time: 08/09/24 12:40 Patient Disposition: Xfer Inpatient Rehab Fac Discharge Diagnosis: Cerebral infarction Referrals: [facility] [Outside] - 1 Week Rusty Cronin MD [Primary Care Provider] - 1 Week Discharge Medications: New losartan 50 mg Tablet 50 mg PO DAILY Qty: 30 0RF Protocol: Hold for SBP< HOLD for SBP < : 90 atorvastatin 80 mg Tablet 80 mg PO DAILY Qty: 30 0RF aspirin 81 mg Tablet,Delayed Release (Dr/Ec) 81 mg PO DAILY Qty: 30 0RF amlodipine 10 mg Tablet 10 mg PO DAILY Qty: 30 0RF Protocol: Hold for SBP< HOLD for SBP < : 90 Continued metformin 500 mg tablet 500 mg PO BID Qty: 60 8RF multivitamin Tablet 1 tab PO DAILY Discontinued (DME) blood-glucose meter [FreeStyle Lite Meter] Kit See Rx Instructions .ROUTE .MEDSUPPLY Qty: 1 0RF Rx Instructions: As directed three a day (DME) FreeStyle Lite Strips Strip See Rx Instructions .ROUTE .MEDSUPPLY Qty: 100 11RF Rx Instructions: As directed three times a day (DME) lancets [FreeStyle Lancets] 28 gauge misc See Rx Instructions .ROUTE .MEDSUPPLY Qty: 100 11RF Rx Instructions: As directed three time a day Discharge Orders: Discharge Order (Routine); Ordered 08/09/24 Ordered By: Maximus Solis Diet: Advance to usual diet Activity on Discharge: As tolerated Stand Alone Forms: Patient Portal Discharge page Print Language: Azeri Care Plan Goals: Resume all medications as outlined on discharge summary sheet. Health Concerns: Losartan/amlodipine/aspirin has been added to home regimen Plan of Treatment: As per receiving facility Assessment: See discharge summary
== END 2024-08-09 13:10 | DRG 45 ==
LOC: HO.ED 20:35 → HO.EDOVER 21:45 → HO.IMC 08-07 07:51
PROVIDERS: Physician Assistant; Admitting Provider Hospitalist; Emergency Provider Emergency Medicine; PCP Internal Medicine; Visit Provider Hospitalist
DX: I63.9 Cerebral infarction, unspecified (principal); G81.94 Hemiplegia, unspecified affecting left nondominant side; E11.9 Type 2 diabetes mellitus without complications; F17.210 Nicotine dependence, cigarettes, uncomplicated; R94.31 Abnormal electrocardiogram [ECG] [EKG]; R29.700 NIHSS score 0; E78.5 Hyperlipidemia, unspecified; I10 Essential (primary) hypertension; Z71.6 Tobacco abuse counseling; Z79.84 Long term (current) use of oral hypoglycemic drugs; Z79.899 Other long term (current) drug therapy
CPT/HCPCS: 36415; 70496; 70498; 70551; 71046; 80053; 80061; 82947; 84484; 85025; 85027; 85610; 85730; 93005; 93306; 96125; 97110; 97112; 97116; 97162; 97165; 99285; J1644; Q9957; Q9967

== ENCOUNTER → 2024-08-06 17:29 | Outpatient (BNV) | payer OTHER, SELFPAY | PROVIDERS: Emergency Provider Emergency Medicine; PCP Internal Medicine; Visit Provider Specialist | DX: M62.81 Muscle weakness (generalized) (principal) | CPT/HCPCS: 70496; 70498; 71046 ==

== ENCOUNTER 2024-08-06 21:34 | Outpatient (BNV) | payer OTHER, SELFPAY | END 2024-08-08 07:00 | PROVIDERS: Admitting Provider Hospitalist; Emergency Provider Emergency Medicine; PCP Internal Medicine; Visit Provider Internal Medicine Cardiovascular Disease | DX: I42.2 Other hypertrophic cardiomyopathy (principal) | CPT/HCPCS: 93306 ==

== ENCOUNTER 2024-08-06 21:34 | Outpatient (BNV) | payer OTHER, SELFPAY | END 2024-08-07 12:00 | PROVIDERS: Admitting Provider Hospitalist; Emergency Provider Emergency Medicine; PCP Internal Medicine; Visit Provider Radiology Diagnostic Radiology | DX: I63.81 Other cerebral infarction due to occlusion or stenosis of small artery (principal) | CPT/HCPCS: 70551 ==

== ENCOUNTER → 2024-08-06 21:34 | Outpatient (BNV) | payer OTHER, SELFPAY | PROVIDERS: Admitting Provider Hospitalist; Emergency Provider Emergency Medicine; PCP Internal Medicine; Visit Provider Internal Medicine Cardiovascular Disease | DX: I63.30 Cerebral infarction due to thrombosis of unspecified cerebral artery (principal); I10 Essential (primary) hypertension | CPT/HCPCS: 93010; 99223; 99232 ==

== ENCOUNTER → 2024-08-06 21:34 | Outpatient (BNV) | payer OTHER, SELFPAY | PROVIDERS: Admitting Provider Hospitalist; Emergency Provider Emergency Medicine; PCP Internal Medicine; Visit Provider Psychiatry & Neurology Neurology | DX: I63.30 Cerebral infarction due to thrombosis of unspecified cerebral artery (principal) | CPT/HCPCS: 99222 ==

== ENCOUNTER → 2024-08-06 21:34 | Outpatient (BNV) | payer OTHER, SELFPAY | PROVIDERS: Admitting Provider Hospitalist; Emergency Provider Emergency Medicine; PCP Internal Medicine; Visit Provider Hospitalist | DX: I63.30 Cerebral infarction due to thrombosis of unspecified cerebral artery (principal); E11.9 Type 2 diabetes mellitus without complications; I10 Essential (primary) hypertension; R29.898 Other symptoms and signs involving the musculoskeletal system | CPT/HCPCS: 99223; 99232 ==

== ENCOUNTER 2024-08-25 14:13 | Outpatient (AMB) | payer OTHER, SELFPAY ==
--- NOTE | 2024-08-25 14:15 | MHC.PC.OV ---
Vital Signs 08/25/24 14:16 Height 6 ft 1 in Weight 139 lb 15.896 oz BMI 18.5 BP 140/84 H Blood Pressure Location Rt brachial Position Sitting Respiration 20 Pulse 115 H Pulse Source Pulse Oximeter Temp 98.1 F Temp Source Oral Pulse Oximetry (%) 97 Oxygen Delivery Method Room Air [facility] Cronin Intake Note: Patient is here for hospital discharge follow up. Patient was discharged from [facility] on 08/16/2024. 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 Accompanied by: Self / Same As Patient Allergies Penicillins [PENICILLINS] Allergy (Severe, Verified 08/25/24 14:46) ANAPHYLAXIS Medication List - Last Reconciled 08/25/24 by MOSES John amlodipine 10 mg PO BID aspirin 81 mg PO DAILY atorvastatin 80 mg PO DAILY losartan 50 mg See Protocol PO DAILY metformin 500 mg PO BID multivitamin with folic acid 400 mcg (Daily-Jennifer (with folic acid)) 1 tab PO DAILY Tobacco use date assessed: 08/25/24 Dental Screening Dental Screen Date: 08/25/24 Did you have a dental visit in the last 12 months?: No Did you have a dental problem in the last 6 months where you did not have access to dental care?: No Was dental information given to patient?: Patient has dentist HPI [facility] 08/16 Dr Cronin HPI Details Patient is here for hospital discharge follow up. Patient was discharged from [facility] on 08/16/2024 The patient is a 54-year-old male presenting for follow-up after suffering an ischemic stroke. The stroke was identified during his workday, associated with a drastic rise in blood pressure which remains the suspected cause. The patient's medical history reveals essential hypertension, previously untreated, and hyperlipidemia for which statin therapy is warranted. Despite a previous A1c of 10.7, his diabetes mellitus type 2 has seen control, with recent measurements showing an A1c of 7.0. After hospitalization, the patient attended rehabilitation, achieving notable progress in recovering strength on the affected left side. Home-based occupational therapy continues to improve his condition. Daily stresses related to long work hours appear to be contributing factors. Blood pressure readings are being monitored, with the primary goal of maintaining levels below 140 mmHg systolic and avoiding risks associated with long-standing uncontrolled hypertension. States that he will be getting 2 weeks of physical therapy in his home and then outpatient rehab according to his progression [facility] Medical History (Updated 09/04/24 @ 17:05 by MOSES John) Hypertension Cerebral infarction Diabetes mellitus type 2, controlled, without complications Diabetes mellitus Willis palsy Surgical History Hx of eye surgery No pertinent past surgical history Family History Father No problems noted. Mother Diabetes Hypertension Hyperlipidemia Social History Household Members: Family Housing: Apartment Do you presently have visiting nurse or other home services: No Alcohol intake: current Alcohol intake frequency: does not drink Patient Tobacco Use Status: Former Tobacco user Tobacco use type: Cigarette Cigarette Packs Per Day: 0.5 Cigarettes Per Day: 10 Years Smoked: 10; Quit 08/04/2024 e-Cigarette/Vaping Use: Never Used Second Hand Smoke Exposure: Yes service: No Current occupational status: disabled Cognitive needs: Yes (Walker) Hearing needs: No Vision needs: Yes (Glasses) Questionnaire Thrive Questionnaire Date Thrive assessed: 08/25/24 I am a: Patient What is your living situation today?: I have a steady place to live Within the past 12 months, did the food you bought not last and you didn't have the money to get more?: Never true Within the past 12 months, did you worry whether your food would run out before you got money to buy more?: Never true Do you have trouble paying for medicines?: No Do you have trouble getting transportation to medical appointments?: No Do you have trouble paying your heating and electricity bill?: No Do you have trouble taking care of your child, family member or friend?: No Do you have trouble with day-to-day activities such as bathing, preparing meals, shopping, managing finances, etc.?: No Are you currently unemployed and looking for a job?: Yes Are you interested in more education?: I choose not to answer this question Please select the resources that you would like help with: None Currently or been in a relationship where the following occur: No concerns reported THRIVE Score: 0 AUDIT C Alcohol Use Questionnaire (AUDIT-C) 1. How often do you have a drink containing alcohol?: Never Total Score: 0 Score Reviewed/Action Taken: No KATYA-7 AMB Questionnaire KATYA-7 Date KATYA - 7 assessed: 02/24/24 Source: Developed by Drs. Trev Navarrete, Ana Ovalle, Feliz Arellano and colleagues, with an educational molly from [employer]. Review of Systems Const Denies headache(s) and Reports weakness (Left-sided weakness) Eyes Denies loss of vision ENT Denies vertigo, Denies dizziness, Denies headache(s) and Denies sore throat Card Denies chest pain, Denies leg edema and Denies lightheadedness Resp Denies cough, Denies hemoptysis and Denies wheezing GI Denies abdominal pain, Denies melena, Denies constipation, Denies diarrhea and Denies vomiting Denies dysuria, Denies urinary frequency and Denies urinary urgency Musc Denies arthralgias, Denies joint swelling, Denies numbness and Denies tingling Neuro Denies Abnormal speech present, Denies behavioral changes, Denies vertigo, Denies dizziness, Denies headache(s), Denies loss of vision, Denies memory loss, Denies numbness, Denies tingling and Reports weakness (Left-sided weakness) Psych Denies anxiety, Denies behavioral changes, Denies depression, Denies memory loss and Denies panic attacks Steven/Lymph Denies easy bleeding and Denies easy bruising Aller/Immun Denies wheezing Physical exam (Primary Care) Vital Signs: Last Vital Signs Temp 98.1 F 08/25/24 14:16 Pulse 115 H 08/25/24 14:16 Resp 20 08/25/24 14:16 BP 140/84 H 08/25/24 14:16 Pulse Ox 97 08/25/24 14:16 Oxygen Delivery Method Room Air 08/25/24 14:16 BMI result Body Mass Index 18.5 Tobacco/Smoking Status: Tobacco use Status Tobacco use date assessed 08/25/24 08/25/24 14:35 Patient Tobacco Use Status Former Tobacco user 08/25/24 14:35 Tobacco use type Cigarette 08/25/24 14:31 e-Cigarette/Vaping Use Never Used 08/25/24 14:31 Thrive Assessment: Date of Thrive Assessment Date Thrive assessed 08/25/24 08/25/24 14:35 Currently or been in a relationship where the following occur: No concerns reported Const General: healthy appearing, no acute distress, alert and awake Nutritional Appearance: well nourished Orientation/consciousness: oriented to person, oriented to place and oriented to time HENMT Ears: TM's normal bilaterally General nose exam: Normal nasal mucous membranes and turbinates present Eyes Conjunctivae: conjunctivae normal Sclerae: sclerae normal Pupils: Equal, round and reactive pupils present Neck Neck: Yes no lymphadenopathy and Yes no JVD Thyroid: Thyroid normal Carotids: no bruits Resp Effort & Inspection: normal respiratory effort and not tachypneic Auscultation: no crackles, no rales, no rhonchi and no wheezes Cardio Rate: regular rate Rhythm: regular rhythm Heart sounds: no murmurs and normal S1 and S2 GI Palpation (GI): Soft to palpation, nontender, no hepatomegaly and no splenomegaly Auscultation: normal bowel sounds Skin General skin exam: no rashes or lesions noted and dry skin Neuro General: oriented to person, oriented to place and oriented to time Cranial nerves: Yes Equal, round and reactive pupils present Speech: No Abnormal speech present Gait exam (Neuro): Normal gait present Motor exam (neuro): no tremor noted Extrem Right upper extremity: full ROM and elbow/forearm (5/5) Left upper extremity: full ROM and elbow/forearm (4/5) Right lower extremity: full ROM and lower leg (5/5); no edema Left lower extremity: full ROM and lower leg (4/5); no edema Psych Mental Status: mental status grossly normal Speech and movement: Normal speech and movement present Affect: normal affect Attitude: cooperative Thought process: Normal thought process present Coding Level of Care Code Est Pt Level 4 (99954) Diagnoses Acute right MCA stroke I63.511 Hypertension, unspecified type I10 Hypertension type: unspecified Type 2 diabetes mellitus with other neurologic complication, with long-term current use of insulin E11.49; Z79.4 Diabetes mellitus type: type 2 Diabetes mellitus wordpress developer insulin use: with penitentiary use Diabetes mellitus complication status: with neurologic complications Diabetes mellitus complication detail: with other neurological complication Time Spent (min) 39 Assessment & Plan Assessment & Plan (1) Acute right MCA stroke: Code(s): I63.511 - Cerebral infarction due to unspecified occlusion or stenosis of right middle cerebral artery Category: Medical Plan: MRI on 08/07/24 IMPRESSION: 1. Acute/subacute infarct in the right mid to posterior hull radiata measuring 2.0 x 1.1 x 1.8 cm (MCA perforators/lenticulostriate artery distribution). No associated mass effect. 2. No additional acute infarct, evidence of intracranial hemorrhage, mass effect, or edema. 3. Old infarct in the left anterior hull radiata. Old lacunar type infarct in the right medial cerebellum. Consider chronic hypertension. 4. Mild to moderate changes of small vessel ischemia. Residual of left-sided weakness, status post short-term rehab. The patient regained some strength significantly, continue to be slightly weaker on the left side upper and lower extremities. Patient was discharged from rehab home with in-home PT and would plans to continue PT outpatient depending on his progress. Continue aspirin 81 mg, atorvastatin 80 mg daily. Continue tight control of blood pressure and diabetes (2) Hypertension: Code(s): I10 - Essential (primary) hypertension Category: Medical Qualifiers: Hypertension type: unspecified Qualified Code(s): I10 - Essential (primary) hypertension Plan: Blood pressure elevated in office 140/84. Heart rate 115. Reinforced low-sodium diet Increase losartan to 100 mg daily, continue amlodipine 10 mg b.i.d. Patient to return in 4 weeks for nurse visit (3) Diabetes mellitus: Code(s): E11.9 - Type 2 diabetes mellitus without complications Category: Medical Qualifiers: Diabetes mellitus type: type 2 Diabetes mellitus wordpress developer insulin use: with penitentiary use Diabetes mellitus complication status: with neurologic complications Diabetes mellitus complication detail: with other neurological complication Qualified Code(s): E11.49 - Type 2 diabetes mellitus with other diabetic neurological complication; Z79.4 - custodial (current) use of insulin Plan: Her last A1c was 7% in February 2024. Continue metformin 500 mg b.i.d. Plan Patient to return in 4 weeks for blood pressure check via nurse visit. And then return in 3 months for evaluation of chronic conditions. Orders: Orders Complete Blood Count Auto Diff 3 Months I63.511 - Cerebral infarction due to unspecified occlusion or stenosis of right middle cerebral artery, E11.9 - Type 2 diabetes mellitus without complications, I10 - Essential (primary) hypertension Comprehensive [place]. Panel Fast 3 Months I63.511 - Cerebral infarction due to unspecified occlusion or stenosis of right middle cerebral artery, E11.9 - Type 2 diabetes mellitus without complications, I10 - Essential (primary) hypertension Lipid Panel 3 Months I63.511 - Cerebral infarction due to unspecified occlusion or stenosis of right middle cerebral artery, E11.9 - Type 2 diabetes mellitus without complications, I10 - Essential (primary) hypertension TSH reflex Free T4 3 Months I63.511 - Cerebral infarction due to unspecified occlusion or stenosis of right middle cerebral artery, E11.9 - Type 2 diabetes mellitus without complications, I10 - Essential (primary) hypertension Vitamin D 25-OH Total 3 Months I63.511 - Cerebral infarction due to unspecified occlusion or stenosis of right middle cerebral artery, E11.9 - Type 2 diabetes mellitus without complications, I10 - Essential (primary) hypertension UA CC w/rflx Micro + Cult 3 Months I63.511 - Cerebral infarction due to unspecified occlusion or stenosis of right middle cerebral artery, E11.9 - Type 2 diabetes mellitus without complications, I10 - Essential (primary) hypertension Hemoglobin A1c 3 Months I63.511 - Cerebral infarction due to unspecified occlusion or stenosis of right middle cerebral artery, E11.9 - Type 2 diabetes mellitus without complications, I10 - Essential (primary) hypertension Medications: New losartan 100 mg PO DAILY 30 tabs 2RF On Hold losartan Hold Comment: Doctor's Order 50 mg See Protocol PO DAILY 30 tabs 0RF
[2024-08-25 14:16] VITALS: BP 140/84; PULSE 115; RESP 20; TEMP 36.7; O2SAT 97; BMI 18.5
== END 2024-08-25 15:34 | disposition home or self-care (01) ==
LOC: HO.HMCH 14:14
PROVIDERS: PCP Internal Medicine
DX: I63.511 Cerebral infarction due to unspecified occlusion or stenosis of right middle cerebral artery (principal); I10 Essential (primary) hypertension; E11.49 Type 2 diabetes mellitus with other diabetic neurological complication; Z79.4 Long term (current) use of insulin

== ENCOUNTER → 2024-08-25 14:13 | Outpatient (BNVA) | payer OTHER, SELFPAY | PROVIDERS: PCP Internal Medicine | DX: E11.49 Type 2 diabetes mellitus with other diabetic neurological complication (principal); I10 Essential (primary) hypertension; Z86.73 Personal history of transient ischemic attack (TIA), and cerebral infarction without residual deficits; Z79.899 Other long term (current) drug therapy; Z87.891 Personal history of nicotine dependence; Z79.4 Long term (current) use of insulin | CPT/HCPCS: 99212 ==

== ENCOUNTER 2024-10-10 08:54 | Outpatient (REF) | payer OTHER, SELFPAY ==
[2024-10-10 09:40] LABS: MANUAL DIFF FLAG NO
[2024-10-10 10:35] LABS: Hematocrit 36.6 % (42.0-52.0); Hemoglobin 13.2 g/dl (14.0-18.0); Imm Gran Abs Auto 0.03 X10*3/uL (0.00-0.03); Imm Gran Pct Auto 0.2 % (0.0-0.4); Lymphocytes Absolute Auto 3.0 X10*3/uL (1.2-4.9); Mean Corpuscular HGB Conc 36.1 g/dl (31.0-36.0); Mean Corpuscular Hemoglobin 29.7 pg (27.0-33.0); Mean Corpuscular Volume 82.2 fL (80.0-98.0); NRBC Abs Auto 0.000 X10*3/uL (0.0-0.012); NRBC Pct Auto 0.0 /100WBC (0.0-0.2); Platelet Count 395 X10*3/uL (160-400); Red Blood Count 4.45 X10*6/uL (4.60-5.80); White Blood Count 13.4 X10*3/uL (4.8-10.8)
[2024-10-10 10:42] LABS: Appearance Urine Turbid; Glucose Urine UA Negative (Negative); PH 5.5 (5.0-9.0); Specific Gravity - Urine 1.020 (1.005-1.025); UMIC TRIGGER UACC YES
[2024-10-10 10:51] LABS: Hemoglobin A1C 186.8565 umol/L; Total Hemoglobin (HGBA1C) 3480.1538 umol/L
[2024-10-10 11:03] LABS: Other Crystals Urine Present
[2024-10-10 11:13] LABS: Alanine Aminotransferase 24 U/L (0-40); Albumin Level 4.8 g/dL (3.5-5.0); Alkaline Phosphatase 130 U/L (39-117); Anion Gap 15 (12-20); Aspartate Amino Transferase 32 U/L (5-37); Blood Urea Nitrogen 17 mg/dL (9-16); Calcium 10.1 mg/dL (8.4-10.2); Carbon Dioxide 24 mmol/L (22-29); Chloride 107 mmol/L (96-108); Cholesterol 96 mg/dL (<200); Estimated Glomerular Filt Rate > 60; HDL Cholesterol 28 mg/dL (>40); Potassium 3.7 mmol/L (3.3-5.1); Sodium 142 mmol/L (135-145); Total Protein 7.6 g/dL (6.5-8.0); Triglycerides 44 mg/dL (<150)
== END 2024-10-10 08:55 | disposition home or self-care (01) ==
LOC: HO.LAB 08:54
DX: I63.511 Cerebral infarction due to unspecified occlusion or stenosis of right middle cerebral artery (principal); I10 Essential (primary) hypertension; E11.9 Type 2 diabetes mellitus without complications
CPT/HCPCS: 36415; 80053; 80061; 81001; 82306; 83036; 84443; 85025

== ENCOUNTER 2024-11-16 09:55 | Outpatient (RCR) | payer OTHER, SELFPAY ==
[2024-10-24 11:00] VITALS: BP 136/79; PULSE 75
--- NOTE | 2024-10-24 12:09 | MHC.PT.EP ---
[facility] [place] Office [place] Office [place] Office [address] Leanne Esteban [address] [phone] F: [phone] F: [phone] F: [phone] F: [phone] Physical Therapy Plan of Care Date of Evaluation: 10/24/24 Date of Surgery: Diagnosis: Acute MCA stroke Assessment: 54 y/o male s/p R MCA CVA 08/04/24 resulting in L hemiparesis (L LE more involved than L UE). He went to acute rehab for 1.5 weeks and then had 4 weeks of home PT/OT transitioning to quad cane. He continues with difficulty navigating stairs, ambulating, transitional movements, and smooth L LE movements. He reports wanting to play basketball again. Examination shows decreased L LE strength, impaired L LE coordination, impaired balance, impaired gait pattern, ?increased tone in L LE. Recommend PT 2x/week for 12 weeks to address impairments, implement HEP, and optimize functional mobility. Frequency and Duration: The patient will be seen 2x/week for 12 weeks Short Term Goals: 6 weeks I with HEP Pt will demonstrate symmetrical bridges 10/10x Ap Processor Goals: 12 weeks i with HEp Improve LEFS to 50/80 Improve TUG to 16 secondsn (IR 24 secon) Treatment Plan: Modalities to reduce pain, spasms and effusion. Manual therapy to restore motion and function. Therapeutic exercise to improve strength and flexibility. Neuromuscular re-education for posture and balance. Therapeutic activities to return to functional activities of daily living. Electronically signed by: Melany Foley PT Please sign and return to therapist. Thank you for your referral.
--- NOTE | 2024-12-18 13:10 | MHC.PT.DC ---
[facility] [place] Office [place] Office [place] Office [address] Leanne Esteban [address] [phone] F: [phone] F: [phone] F: [phone] F: [phone] Physical Therapy Discharge Report Diagnosis: Acute MCA stroke Date of Surgery: Date of Evaluation: 10/24/24 Date of Discharge: 12/18/24 Treatments to Date: 5 Cancellations to Date: 7 No Shows to Date: 3 Discharge Status: Visit Non-compliance Discharge Summary: Pt d/c secondary to noncompliance with scheduling policy. Therapist tried to reach out several times but no answer and voicemail not set up. At this time, will close chart Electronically signed by: Melany Foley PT Please sign and return to therapist. Thank you for your referral.
== END 2024-12-18 13:11 | disposition home or self-care (01) ==
LOC: HO.PT 09:55
DX: I69.354 Hemiplegia and hemiparesis following cerebral infarction affecting left non-dominant side (principal); R29.898 Other symptoms and signs involving the musculoskeletal system
CPT/HCPCS: 97110; 97112; 97162

== ENCOUNTER 2024-12-22 11:04 | Outpatient (AMB) | payer OTHER, SELFPAY ==
[2024-12-22 11:07] VITALS: BP 124/68; PULSE 106; RESP 18; TEMP 36.2; O2SAT 96; BMI 17.6
--- NOTE | 2024-12-22 11:07 | MHC.PC.OV ---
Vital Signs 12/22/24 11:07 Height 6 ft 1 in Weight 133 lb 2 oz BMI 17.6 BP 124/68 Blood Pressure Location Lt brachial Position Sitting Respiration 18 Pulse 106 H Pulse Source Pulse Oximeter Temp 97.1 F Temp Source Temporal Artery Scan Pulse Oximetry (%) 96 Oxygen Delivery Method Room Air Intake Visit Reasons: htn/right MCA/HLD/A1C needed Borough Coordinator Required: No Accompanied by: Self / Same As Patient Allergies Penicillins (PENICILLINS) Allergy (Severe, Verified 12/22/24 11:51) ANAPHYLAXIS Medication List - Last Reconciled 12/22/24 by MOSES John amlodipine 10 mg (2 x 5 mg) PO BID aspirin 81 mg PO DAILY atorvastatin 80 mg PO DAILY 90 days blood sugar diagnostic (FreeStyle Lite Strips) As directed check blood sugar once a day losartan 50 mg See Protocol PO DAILY metformin 500 mg PO BID multivitamin with folic acid 400 mcg (Daily-Jennifer (with folic acid)) 1 tab PO DAILY Tobacco use date assessed: 12/22/24 Dental Screening Dental Screen Date: 12/22/24 Did you have a dental visit in the last 12 months?: No Did you have a dental problem in the last 6 months where you did not have access to dental care?: No Was dental information given to patient?: No HPI htn/right MCA/HLD/A1C needed HPI Details The patient is a 54-year-old male presenting with management of hypertension, evaluation of dysgeusia potentially linked to losartan, and monitoring of diabetes control. The patient reports experiencing a metallic taste, which he attributes to losartan, particularly when the dosage was increased to 100 mg, causing significant discomfort and loss of appetite. This adverse effect has led to a significant weight loss, with the patient now weighing 133 pounds. The patient has difficulty eating due to the taste, impacting his nutritional intake. The patient has a history of Type 2 Diabetes Mellitus, with a recent HbA1c level of 7.1%. He expresses a desire to lower his HbA1c below 7% and acknowledges that his dietary habits have been affected by the dysgeusia. The patient is actively engaged in physical activity, including daily exercise, which he believes helps manage his diabetes and blood pressure. The patient has a history of hypertension, which is currently well-controlled with blood pressure readings consistently below 130 mmHg. He experienced a cerebrovascular accident three to four months ago, which he attributes to previously uncontrolled hypertension. The patient is undergoing rehabilitation to regain mobility and reports improvement in his left arm function. The patient was informed of mild anemia, with low red blood cell counts noted in recent lab results. He is advised to increase dietary intake of iron-rich foods to address this issue. [facility] Medical History Hypertension Cerebral infarction Diabetes mellitus type 2, controlled, without complications Diabetes mellitus Willis palsy Surgical History Hx of eye surgery No pertinent past surgical history Family History Father No problems noted. Mother Diabetes Hypertension Hyperlipidemia Social History Household Members: Family Housing: Apartment Do you presently have visiting nurse or other home services: No Alcohol intake: current Alcohol intake frequency: does not drink Patient Tobacco Use Status: Former Tobacco user Tobacco use type: Cigarette Cigarette Packs Per Day: 0.5 Cigarettes Per Day: 10 Years Smoked: 10; Quit 08/04/2024 e-Cigarette/Vaping Use: Never Used Second Hand Smoke Exposure: Yes service: No Current occupational status: disabled Cognitive needs: Yes (Walker) Hearing needs: No Vision needs: Yes (Glasses) Questionnaire PHQ-9 Over the last 2 weeks, how often have you been bothered by any of the following problems? 1. Little interest or pleasure in doing things: not at all 2. Feeling down, depressed, or hopeless: not at all 3. Trouble falling or staying asleep, or sleeping too much: not at all 4. Feeling tired or having little energy: not at all 5. Poor appetite or overeating: not at all 6. Feeling bad about yourself - or that you are a failure or have let yourself or your family down: not at all 7. Trouble concentrating on things, such as reading the newspaper or watching television: not at all 8. Moving or speaking so slowly that other people could have noticed. Or the opposite - being so fidgety or restless that you have been moving around a lot more than usual: not at all 9. Thoughts that you would be better off or of hurting yourself in some way: not at all Total score: 0 Depression Screening Interpretation: Negative Depression Screening Done: Yes Source: Developed by Drs. Trev Navarrete, Ana Ovalle, Feliz Arellano and colleagues, with an educational molly from [employer] Thrive Questionnaire Date Thrive assessed: 12/22/24 I am a: Patient What is your living situation today?: I have a steady place to live Within the past 12 months, did the food you bought not last and you didn't have the money to get more?: Never true Within the past 12 months, did you worry whether your food would run out before you got money to buy more?: Never true Do you have trouble paying for medicines?: I choose not to answer this question Do you have trouble getting transportation to medical appointments?: Yes Do you have trouble paying your heating and electricity bill?: No Do you have trouble taking care of your child, family member or friend?: No Do you have trouble with day-to-day activities such as bathing, preparing meals, shopping, managing finances, etc.?: No Are you currently unemployed and looking for a job?: I choose not to answer this question Are you interested in more education?: No Please select the resources that you would like help with: None Currently or been in a relationship where the following occur: No concerns reported THRIVE Score: 1 AUDIT C Alcohol Use Questionnaire (AUDIT-C) 1. How often do you have a drink containing alcohol?: Never Total Score: 0 Score Reviewed/Action Taken: No KATYA-7 AMB Questionnaire KATYA-7 Date KATYA - 7 assessed: 12/22/24 Feeling nervous, anxious, or on edge: 0 = Not at all Not being able to stop or control worryin = Not at all Worrying too much about different things: 0 = Not at all Trouble relaxin = Not at all Being so restless that it is hard to sit still: 0 = Not at all Becoming easily annoyed or irritable: 0 = Not at all Feeling afraid as if something awful might happen: 0 = Not at all Total KATYA-7 score (0-4 normal; 5-9 mild; 10-14 moderate; 15-21 severe): 0 Source: Developed by Drs. Trev Navarrete, Ana Ovalle, Feliz Arellano and colleagues, with an educational molly from [employer] Review of Systems Const Denies body aches, Denies chills, Denies fever(s), Denies headache(s) and Denies poor appetite Eyes Reports no additional complaints ENT Denies dysphagia, Denies dizziness, Denies headache(s) and Denies odynophagia Card Denies chest pain, Denies syncope, Denies edema, Denies irregular heart rhythm, Denies lightheadedness and Denies dyspnea Resp Denies cough and Denies dyspnea GI Denies abdominal pain, Denies constipation, Denies dysphagia, Denies diarrhea, Denies nausea, Denies odynophagia and Denies vomiting Reports no additional complaints Musc Reports muscle weakness (Left-sided weakness status post MCA) Skin/Breast Reports system reviewed and no additional complaints, except as documented Neuro Denies dizziness, Denies syncope and Denies headache(s) Psych Reports no additional complaints Physical exam (Primary Care) Vital Signs: Last Vital Signs Temp 97.1 F 12/22/24 11:07 Pulse 106 H 12/22/24 11:07 Resp 18 12/22/24 11:07 BP 124/68 12/22/24 11:07 Pulse Ox 96 12/22/24 11:07 Oxygen Delivery Method Room Air 12/22/24 11:07 BMI result Body Mass Index 17.6 Tobacco/Smoking Status: Tobacco use Status Tobacco use date assessed 12/22/24 12/22/24 11:08 Patient Tobacco Use Status Former Tobacco user 12/22/24 11:08 Tobacco use type Cigarette 12/22/24 11:08 e-Cigarette/Vaping Use Never Used 12/22/24 11:08 PHQ-9: PHQ-9 Score PHQ-9: Total score 0 12/22/24 12:03 Depression Screening Interpretation: Negative Thrive Assessment: Date of Thrive Assessment Date Thrive assessed 12/22/24 12/22/24 11:08 Currently or been in a relationship where the following occur: No concerns reported Const General: cooperative, healthy appearing, comfortable and no acute distress Orientation/consciousness: patient oriented x3 HENMT Head: Yes normocephalic Ears: hearing grossly normal bilaterally General nose exam: Normal external nose present Eyes General: appearance normal, both eyes and all related structures Conjunctivae: conjunctivae normal Neck Neck: Yes full ROM and Yes no lymphadenopathy Resp Effort & Inspection: normal respiratory effort Auscultation: clear to auscultation bilaterally, no crackles, no rales, no rhonchi and no wheezes Cardio Rate: regular rate Rhythm: regular rhythm Skin General skin exam: no rashes or lesions noted Neuro General: patient oriented x3 Gait exam (Neuro): Normal gait present Extrem General: Yes normal to inspection, Yes full ROM and No edema Right upper extremity: elbow/forearm (5/5) Left upper extremity: elbow/forearm (4/5) Right lower extremity: lower leg (5/5) Left lower extremity: lower leg (4/5) Psych Affect: normal affect Attitude: cooperative Insight: Good insight present (Psych) Judgement: Good judgement present (Psych) Results Reviewed Results Reviewed: Laboratory Tests 10/10/24 10/10/24 09:33 09:38 WBC 13.4 H RBC 4.45 L Hgb 13.2 L Hct 36.6 L MCV 82.2 MCH 29.7 MCHC 36.1 H RDW 14.1 Plt Count 395 Sodium 142 Potassium 3.7 Chloride 107 Carbon Dioxide 24 Anion Gap 15 BUN 17 H Creatinine 0.95 Estimated GFR > 60 Fasting Glucose 133 H Estimat Average Glucose 157 Hemoglobin A1c % 7.1 H Calcium 10.1 Total Bilirubin 1.4 H AST 32 ALT 24 Alkaline Phosphatase 130 H Total Protein 7.6 Albumin 4.8 Triglycerides 44 Cholesterol 96 LDL Cholesterol, Calc 60 HDL Cholesterol 28 L 25-OH Vitamin D Total 42.8 TSH 1.21 Urine Color Dark Yellow Urine Appearance Turbid Urine pH 5.5 Ur Specific [place] 1.020 Urine Protein 30 (1+) H Urine Glucose (UA) Negative Urine Ketones Trace Urine Blood Negative Urine Nitrite Negative Ur Leukocyte Esterase Negative Urine RBC 0-2 Urine WBC 0-5 Ur Squamous Epith Cells 6-10 Other Crystals Present Urine Bacteria None Seen Hyaline Casts 0-2 Coding Level of Care Code Est Pt Level 4 (53182) Diagnoses Acute right MCA stroke I63.511 Hypertension, unspecified type I10 Hypertension type: unspecified Type 2 diabetes mellitus with other neurologic complication, with long-term current use of insulin E11.49; Z79.4 Diabetes mellitus type: type 2 Diabetes mellitus group home insulin use: with extermination inspector use Diabetes mellitus complication status: with neurologic complications Diabetes mellitus complication detail: with other neurological complication Metallic taste R43.8 Anemia, unspecified type D64.9 Anemia type: unspecified type Time Spent (min) 39 Assessment & Plan Assessment & Plan (1) Acute right MCA stroke: Code(s): I63.511 - Cerebral infarction due to unspecified occlusion or stenosis of right middle cerebral artery Category: Medical Plan: MRI on 08/07/24 IMPRESSION: 1. Acute/subacute infarct in the right mid to posterior hull radiata measuring 2.0 x 1.1 x 1.8 cm (MCA perforators/lenticulostriate artery distribution). No associated mass effect. 2. No additional acute infarct, evidence of intracranial hemorrhage, mass effect, or edema. 3. Old infarct in the left anterior hull radiata. Old lacunar type infarct in the right medial cerebellum. Consider chronic hypertension. 4. Mild to moderate changes of small vessel ischemia. Residual of left-sided weakness, status post short-term rehab. The patient regained some strength significantly, continue to be slightly weaker on the left side upper and lower extremities. Patient completed in-home PT and has been doing outpatient PT with positive effects. Patient reports that he has gradually getting stronger. Continue aspirin 81 mg, atorvastatin 80 mg daily. Continue tight control of blood pressure and diabetes (2) Hypertension: Code(s): I10 - Essential (primary) hypertension Category: Medical Qualifiers: Hypertension type: unspecified Qualified Code(s): I10 - Essential (primary) hypertension Plan: Blood pressure 124/60 and heart rate continues to be slightly tachy at 106 Reinforced low-sodium diet On previous visit losartan was increased due to elevated blood pressure. However, the patient developed side effects with metallic taste in his mouth settled medication was decreased back to 50 mg daily. The patient reports that the metallic taste is not as bad as it was before but it is still present and this had decreased his appetite. We will switch to irbesartan 75 mg daily encouraged the patient to continue monitoring blood pressure and reports readings on portal. Continue amlodipine 10 mg b.i.d. (3) Diabetes mellitus: Code(s): E11.9 - Type 2 diabetes mellitus without complications Category: Medical Qualifiers: Diabetes mellitus type: type 2 Diabetes mellitus extermination inspector insulin use: with extermination inspector use Diabetes mellitus complication status: with neurologic complications Diabetes mellitus complication detail: with other neurological complication Qualified Code(s): E11.49 - Type 2 diabetes mellitus with other diabetic neurological complication; Z79.4 - intermediate project manager (current) use of insulin Plan: A1c 7.1% goal is less than 7% Discussed lifestyle modifications including dietary changes and physical activity Continue metformin 500 mg b.i.d. We will recheck fasting glucose and A1c in 3 months (4) Metallic taste: Code(s): R43.8 - Other disturbances of smell and taste Category: Medical Plan: Attributed to losartan Medication switched to irbesartan 75 mg daily We will continue to monitor for side effects (5) Anemia: Code(s): D64.9 - Anemia, unspecified Category: Medical Qualifiers: Anemia type: unspecified type Qualified Code(s): D64.9 - Anemia, unspecified Plan: The patient is mildly anemic, with low red blood cell counts noted in recent labs. Dietary modifications to increase iron intake are recommended to address this issue. Plan Follow up in 3 months Medications: New irbesartan 75 mg PO DAILY 30 tabs 3RF Discontinued losartan Discontinued Reason: Doctor's Order 50 mg See Protocol PO DAILY 90 tabs 3RF
--- OUTSIDE RECORDS SUMMARY | 2024-12-22 12:55 | XMS_ITS | Clinical Summary ---
Author Organization [facility] Address [address] [place], [place] [id number] Phone Care Team Providers Care Cylinder Devalver Name Role Phone Wally Mixon MD Primary Care Provider [phone] Social History Tobacco Use Types Packs/Day Years Used Date Smoking Tobacco: Never Assessed Education Answer Date Recorded Are you interested in more education? Not on pedro e 08/08/2024 Are you concerned about learning? Not on file 08/08/2024 No 08/08/2024 No 08/08/2024 Digital Access Answer Date Recorded No 08/08/2024 No 08/08/2024 Reliable internet access at home? Not on file 08/08/2024 Device with a working camera? Not on file Sex and Gender Information Value Date Recorded Sex Assigned at Not on file Legal Sex Male 10:39 AM EDT Gender Identity Not on file Sexual Orientation Not on file Plan of Treatment Not on file Medical Devices Not on file Insurance [address] [place] [facility] [place] [address] [place] [address] [place] [address] [place] [address] [place] [address] [place] [address] [place] [address] [address] [place] [facility] A[facility] Care Teams Cylinder Devalver Relationship Specialty Start Date End Date Wlaly Mixon MD [address] [place] [id number] PCP - General 08/08/24 Additional Source Comments The information contained in this document represents components of the legal health record. It is not the complete legal health record.[facility]
== END 2024-12-22 12:15 | disposition home or self-care (01) ==
LOC: HO.HMCH 11:05
DX: I63.511 Cerebral infarction due to unspecified occlusion or stenosis of right middle cerebral artery (principal); I10 Essential (primary) hypertension; E11.49 Type 2 diabetes mellitus with other diabetic neurological complication; Z79.4 Long term (current) use of insulin; R43.8 Other disturbances of smell and taste; D64.9 Anemia, unspecified

== ENCOUNTER → 2024-12-22 11:04 | Outpatient (BNVA) | payer OTHER, SELFPAY | DX: I10 Essential (primary) hypertension (principal); R43.2 Parageusia; D64.9 Anemia, unspecified; E11.49 Type 2 diabetes mellitus with other diabetic neurological complication; R43.8 Other disturbances of smell and taste; Z79.4 Long term (current) use of insulin; Z86.73 Personal history of transient ischemic attack (TIA), and cerebral infarction without residual deficits | CPT/HCPCS: 99212 ==